=== PATIENT | female | born 1975 | race Caucasian/White ===

== ENCOUNTER 2016-10-19 20:37 | Emergency (ER) | payer SELFPAY ==
[~2016-10-19] VITALS: Ht 170.2 cm; Wt 106.6 kg
[~2016-10-19 20:37] MED LIST: FAMO-63 PO; PRED50TA PO
[2016-10-19 21:19] VITALS: BP 153/84
--- NOTE | 2016-10-19 21:20 | PHYS DOC ---
Past Medical History Past Medical History: Sciatica, Other Additional Past Medical Histor: Campos's Palsy, heartburn Past Surgical History: , Hysterectomy Alcohol Use: None Drug Use: None Adult General Chief Complaint Chief Complaint: ABDOMINAL PAIN HPI HPI Patient is a 41 year old female presenting to the emergency department for suprapubic and right lower quadrant pain that started earlier this morning. She says that she was quite sick to her stomach yesterday evening but had no pain however the pain has increased throughout the day. She has had nausea but no vomiting diarrhea constipation dysuria hematuria or vaginal bleeding or vaginal discharge. Her abdominal surgeries include a hysterectomy and right oophorectomy. She is in no obvious distress vital signs. Review of Systems Review of Systems Constitutional: Denies fever or chills [] Eyes: Denies change in visual acuity, redness, or eye pain [] HENT: Denies nasal congestion or sore throat [] Respiratory: Denies cough or shortness of breath [] Cardiovascular: No additional information not addressed in HPI [] GI: + abdominal pain, nausea. No vomiting, bloody stools or diarrhea [] : Denies dysuria or hematuria [] Musculoskeletal: Denies back pain or joint pain [] Integument: Denies rash or skin lesions [] Neurologic: Denies headache, focal weakness or sensory changes [] Current Medications Current Medications Current Medications Medications (Trade) Dose Ordered Sig/Boogie Start Time Stop Time Status Last Admin Dose Admin Fentanyl Citrate (Fentanyl 2ml Vial) 50 mcg 1X ONCE 10/19/16 22:45 10/19/16 22:46 UNV Info (Do NOT chart on this entry -- for MONITORING) 1 each PRN DAILY PRN 10/19/16 22:15 10/21/16 22:14 Iohexol (Omnipaque 300 Mg/ml) 75 ml 1X ONCE 10/19/16 22:30 10/19/16 22:31 DC 10/19/16 22:08 75 ML Ketorolac Tromethamine (Toradol) 30 mg 1X ONCE 10/19/16 23:00 10/19/16 23:01 Ondansetron HCl 8 mg 8 mg 1X ONCE 10/19/16 21:30 10/19/16 21:31 DC 10/19/16 21:20 8 MG Sodium Chloride (Iv Sodium Chloride 0.9% 1000ml Bag) 1,000 ml @ 1,000 mls/hr 1X ONCE 10/19/16 21:30 10/19/16 22:29 DC 10/19/16 21:21 1,000 MLS/HR Allergies Allergies Allergies Coded Allergies Type Severity Reaction Last Updated Verified latex Allergy Intermediate Anaphylaxis 05/25/16 Yes Physical Exam Physical Exam Constitutional: Well developed, well nourished, no acute distress, non-toxic appearance. [] HENT: Normocephalic, atraumatic, bilateral external ears normal, oropharynx moist, no oral exudates, nose normal. [] Eyes: PERRLA, EOMI, conjunctiva normal, no discharge. [] Neck: Normal range of motion, no tenderness, supple, no stridor. [] Cardiovascular:Heart rate regular rhythm, no murmur [] Lungs & Thorax: Bilateral breath sounds clear to auscultation [] Abdomen: Bowel sounds normal, soft, + suprapubic and RLQ tenderness, No rebound or guarding. no masses, no pulsatile masses. [] Skin: Warm, dry, no erythema, no rash. [] Back: No tenderness, no CVA tenderness. [] Extremities: No tenderness, no cyanosis, no clubbing, ROM intact, no edema. [] Neurologic: Alert and oriented X 3, normal motor function, normal sensory function, no focal deficits noted. [] Current Patient Data Vital Signs Vital Signs Date Time Temp Pulse Resp B/P Pulse Ox O2 Delivery O2 Flow Rate FiO2 10/19/16 21:21 18 10/19/16 21:19 92 153/84 97 Room Air 10/19/16 20:53 97.5 97.5 Lab Values Laboratory Tests Test 10/19/16 20:40 10/19/16 20:49 Urine Collection Type Unknown Urine Color Yellow Urine Clarity Clear Urine pH 5.5 Urine Specific [place] 1.025 Urine Protein Negativemg/dL (NEG-TRACE) Urine Glucose (UA) Negativemg/dL (NEG) Urine Ketones (Stick) Negativemg/dL (NEG) Urine Blood Negative (NEG) Urine Nitrite Negative (NEG) Urine Bilirubin Negative (NEG) Urine Urobilinogen Dipstick 1.0mg/dL (0.2 mg/dL) Urine Leukocyte Esterase Negative (NEG) Urine RBC 0/HPF (0-2) Urine WBC Occ/HPF (0-4) Urine Squamous Epithelial Cells Many/LPF Urine Bacteria Many/HPF (0-FEW) Urine Mucus Marked/LPF White Blood Count 10.6x10^3/uL (4.0-11.0) Red Blood Count 4.54x10^6/uL (3.50-5.40) Hemoglobin 12.6g/dL (12.0-15.5) Hematocrit 36.8% (36.0-47.0) Mean Corpuscular Volume 81fL (79-100) Mean Corpuscular Hemoglobin 28pg (25-35) Mean Corpuscular Hemoglobin Concent 34g/dL (31-37) Red Cell Distribution Width 13.8% (11.5-14.5) Platelet Count 303x10^3/uL (140-400) Neutrophils (%) (Auto) 63% (31-73) Lymphocytes (%) (Auto) 31% (24-48) Monocytes (%) (Auto) 4% (0-9) Eosinophils (%) (Auto) 2% (0-3) Basophils (%) (Auto) 0% (0-3) Neutrophils # (Auto) 6.7x10^3uL (1.8-7.7) Lymphocytes # (Auto) 3.3x10^3/uL (1.0-4.8) Monocytes # (Auto) 0.4x10^3/uL (0.0-1.1) Eosinophils # (Auto) 0.2x10^3/uL (0.0-0.7) Basophils # (Auto) 0.0x10^3/uL (0.0-0.2) Sodium Level 136mmol/L (136-145) Potassium Level 3.6mmol/L (3.5-5.1) Chloride Level 102mmol/L (98-107) Carbon Dioxide Level 28mmol/L (21-32) Anion Gap 6 (6-14) Blood Urea Nitrogen 12mg/dL (7-20) Creatinine 0.8mg/dL (0.6-1.0) Estimated GFR (Cockcroft-Gault) 79.9 BUN/Creatinine Ratio 15 (6-20) Glucose Level 123mg/dL (70-99) H Calcium Level 9.4mg/dL (8.5-10.1) Total Bilirubin 0.3mg/dL (0.2-1.0) Aspartate Amino Transferase (AST) 28U/L (15-37) Alanine Aminotransferase (ALT) 24U/L (14-59) Alkaline Phosphatase 81U/L (46-116) Total Protein 8.0g/dL (6.4-8.2) Albumin 3.4g/dL (3.4-5.0) Albumin/Globulin Ratio 0.7 (1.0-1.7) L Lipase 98U/L (73-393) Laboratory Tests 10/19/16 20:49 Laboratory Tests 10/19/16 20:49 EKG EKG [] Radiology/Procedures Radiology/Procedures PROCEDURE CT abdomen and pelvis with intravenous contrast only HISTORY Severe right lower quadrant pain today TECHNIQUE After administration of intravenous contrast, CT imaging was performed and pelvis, multiplanar reconstruction images submitted. Exposure: One or more of the following individualized dose reduction techniques were utilized for this exam: 1. Automated exposure control. 2. Adjustment of the mA and/or kV according to patient size. 3. Use of iterative reconstruction technique. Contrast: 75 cc Omnipaque 300 COMPARISON None FINDINGS There is no abnormality of limited visualized lung bases. There is no focal abnormality of the liver, spleen, pancreas, gallbladder, adrenal glands. Both kidneys enhance without hydronephrosis. Accurate evaluation of bowel is limited without oral contrast. There is no significant bowel dilatation, free air, free fluid. Appendix caliber is upper limits of normal 0.6 centimeters, no adjacent inflammatory type change. There is mild diverticulosis of the sigmoid colon. There are likely complex left adnexal cysts, largest on the order of 2 centimeters. IMPRESSION 1. Appendix caliber is upper limits of normal although no other findings suggestive of acute appendicitis. 2. There are likely some complex left adnexal cysts. Electronically signed by: Quoc Martinez MD (October 19, 2016 22:28:41) DICTATED and SIGNED BY: BERNA MARTINEZ MD DATE: 10/19/162227 Course & Med Decision Making Course & Med Decision Making Patient with nonspecific abdominal pain. We will check labs and CT treat symptoms and then reassess. Patient with nonspecific right lower quadrant abdominal pain that goes into her suprapubic area as well. Pain improved in the emergency department and her abdominal exam is largely unchanged however she does not have a surgical abdomen. CT is nonspecific and she could have an early appendicitis based off her symptoms. Patient is staying in the hospital with her currently as he is having some toes amputated tomorrow. She is hoping to go stay with him tonight. I told her that she could have a surgical problem in her abdomen and that she should return to the emergency department if she has worsening pain fevers or vomiting. I told her that I am here until 6 AM and that she is free to return at any time. Patient aware and agreeable with plan for discharge and verbalized understanding of the need for short-term follow-up and strict ER return precautions discussed worsening pain fevers vomiting or additional concerns. Dragon Disclaimer Dragon Disclaimer This electronic medical record was generated, in whole or in part, using a voice recognition dictation system. Departure Departure Impression: Primary Impression: Abdominal pain Disposition: HOME, SELF-CARE Condition: GOOD Referrals: BUCKY BLAKE (PCP) Patient Instructions: Abdominal Pain (Nonspecific) Problem Qualifiers Primary Impression: Abdominal pain Abdominal location: right lower quadrant Qualified Code: R10.31 - Right lower quadrant pain BUCKY DE JESUS DO October 19, 2016 21:20
[2016-10-19] MEDS ORDERED: IV NORMAL SALINE 1000ML BAG 1,000 ML IV ONE (21:30)
[2016-10-19] MEDS ORDERED: ONDANSETRON PF 4 MG/2 ML VIAL. IV ONE (21:30)
[2016-10-19] MEDS ORDERED: fentaNYL PF VIAL 100 MCG/2 ML VIAL IV ONE ×2 (21:30→23:00)
[2016-10-19 21:34] LABS: BASO % 0 % (0-3); EOS % 2 % (0-3); HEMATOCRIT 36.8 % (36.0-47.0); HEMOGLOBIN 12.6 g/dL (12.0-15.5); LYMPH # 3.3 x10^3/uL (1.0-4.8); LYMPH % 31 % (24-48); MEAN CORPUSCULAR HEMOGLOBIN 28 pg (25-35); MEAN CORPUSCULAR HGB CONC 34 g/dL (31-37); MEAN CORPUSCULAR VOLUME 81 fL (79-100); MONO % 4 % (0-9); NEUT % 63 % (31-73); PLATELET COUNT 303 x10^3/uL (140-400); RED BLOOD COUNT 4.54 x10^6/uL (3.50-5.40); RED CELL DISTRIBUTION WIDTH 13.8 % (11.5-14.5); WHITE BLOOD COUNT 10.6 x10^3/uL (4.0-11.0)
[2016-10-19 21:35] LABS: BILIRUBIN,URINE NEGATIVE (NEG); GLUCOSE,URINE NEGATIVE (NEG); NITRITE,URINE NEGATIVE (NEG); PH,URINE 5.5; PROTEIN,URINE NEGATIVE (NEG-TRACE)
[2016-10-19 21:41] LABS: BACTERIA,URINE MANY /HPF (0-FEW); RBC,URINE 0 /HPF (0-2); SQUAMOUS EPITHELIAL CELL,UR MANY /LPF; WBC,URINE OCC /HPF (0-4)
[2016-10-19 21:42] LABS: CALCIUM 9.4 mg/dL (8.5-10.1); CREATININE 0.8 mg/dL (0.6-1.0); GFR 79.9; POTASSIUM 3.6 mmol/L (3.5-5.1)
[2016-10-19 21:48] LABS: ALBUMIN 3.4 g/dL (3.4-5.0); ALBUMIN/GLOBULIN RATIO 0.7 (1.0-1.7); TOTAL BILIRUBIN 0.3 mg/dL (0.2-1.0)
[2016-10-19] MEDS ORDERED: CONTRAST GIVEN MC PRN (22:15)
--- NOTE | 2016-10-19 22:29 | RAD ---
PROCEDURE CT abdomen and pelvis with intravenous contrast only HISTORY Severe right lower quadrant pain today TECHNIQUE After administration of intravenous contrast, CT imaging was performed and pelvis, multiplanar reconstruction images submitted. Exposure: One or more of the following individualized dose reduction techniques were utilized for this exam: 1. Automated exposure control. 2. Adjustment of the mA and/or kV according to patient size. 3. Use of iterative reconstruction technique. Contrast: 75 cc Omnipaque 300 COMPARISON None FINDINGS There is no abnormality of limited visualized lung bases. There is no focal abnormality of the liver, spleen, pancreas, gallbladder, adrenal glands. Both kidneys enhance without hydronephrosis. Accurate evaluation of bowel is limited without oral contrast. There is no significant bowel dilatation, free air, free fluid. Appendix caliber is upper limits of normal 0.6 centimeters, no adjacent inflammatory type change. There is mild diverticulosis of the sigmoid colon. There are likely complex left adnexal cysts, largest on the order of 2 centimeters. IMPRESSION 1. Appendix caliber is upper limits of normal although no other findings suggestive of acute appendicitis. 2. There are likely some complex left adnexal cysts. Electronically signed by: Quoc Shirley MD (October 19, 2016 22:28:41)
[2016-10-19] MEDS ORDERED: IOHEXOL 300 MG/ML 75 ML VIAL IV ONE (22:30)
[2016-10-19] MEDS ORDERED: KETOROLAC TROMETHAMINE 30 MG/ML INJ. IV ONE (23:00)
== END 2016-10-19 22:54 | disposition home or self-care (01) ==
LOC: ER 20:37
DX: R10.31 Right lower quadrant pain (principal); R11.0 Nausea; Z90.710 Acquired absence of both cervix and uterus; Z90.721 Acquired absence of ovaries, unilateral; Z91.040 Latex allergy status
CPT/HCPCS: 36415; 74177; 80053; 81001; 83690; 85027; 87086; 96361; 96374; 96375; 96376; 99285; J1885; J2405; J3010; J7030; Q9967

== ENCOUNTER 2016-10-20 15:03 | Observation (INO) | payer BC ==
[2016-10-20] VITALS (9 sets, daily range): BP systolic 107–133; BP diastolic 57–81
[~2016-10-20] VITALS: Ht 170.2 cm; Wt 106.6 kg
[~2016-10-20 15:03] MED LIST changes: -OXYC1TAB7 PO
[2016-10-20] MEDS ORDERED: IV NORMAL SALINE 1000ML BAG 1,000 ML IV SCH (15:17)
[2016-10-20] MEDS ORDERED: fentaNYL PF VIAL 100 MCG/2 ML VIAL IV PRN ×2 (15:30→16:15)
[2016-10-20] MEDS ORDERED: ONDANSETRON PF 4 MG/2 ML VIAL. IV ONE (15:30)
[2016-10-20] MEDS ORDERED: fentaNYL PF VIAL 100 MCG/2 ML VIAL IV ONE (15:30)
[2016-10-20 15:38] LABS: BASO # 0.1 x10^3/uL (0.0-0.2); BASO % 1 % (0-3); EOS % 1 % (0-3); HEMATOCRIT 36.3 % (36.0-47.0); LYMPH # 2.5 x10^3/uL (1.0-4.8); LYMPH % 25 % (24-48); MEAN CORPUSCULAR HEMOGLOBIN 27 pg (25-35); MEAN CORPUSCULAR HGB CONC 33 g/dL (31-37); MEAN CORPUSCULAR VOLUME 83 fL (79-100); MONO % 4 % (0-9); NEUT % 70 % (31-73); PLATELET COUNT 260 x10^3/uL (140-400); RED BLOOD COUNT 4.38 x10^6/uL (3.50-5.40); RED CELL DISTRIBUTION WIDTH 13.7 % (11.5-14.5); WHITE BLOOD COUNT 10.3 x10^3/uL (4.0-11.0)
--- NOTE | 2016-10-20 15:44 | PHYS DOC ---
Past Medical History Past Medical History: Sciatica, Other Additional Past Medical Histor: Campos's Palsy, heartburn Past Surgical History: , Hysterectomy Alcohol Use: None Drug Use: None Adult General Chief Complaint Chief Complaint: ABDOMINAL PAIN HPI HPI Patient is a 41 year old female who returns to the emergency Department with worsened right lower quadrant abdominal pain. Patient was seen last evening in the ED with some nausea and right lower quadrant abdominal pain which had localized. She was evaluated and thought to have possible early appendicitis that she was discharged with careful return precautions. Patient says that during the day today her pain has gotten progressively worse. She has vomited twice. She is anorexic and has not had a single thing to eat or drink all day today because of nausea. It hurts when she walks. Her pain now is in her low right lower quadrant and wraps around to her back. She's never had pain like this before. She has no history of GI disturbance like Crohn's or ulcerative colitis. She has had a history of "reflux" and was put on a prescription acid medication which did help. She has never had endoscopy. She has had a history and right oophorectomy. She still has her left ovary. She's had no GI surgery. Her is scheduled to have surgery today to have some toe amputations so she was putting off returning but her pain is increasingly severe. Review of Systems Review of Systems Constitutional: Denies fever or chills [] Eyes: Denies change in visual acuity, redness, or eye pain [] HENT: Denies nasal congestion or sore throat [] Respiratory: Denies cough or shortness of breath [] Cardiovascular: Denies chest pain GI: As in history of present illness : Denies dysuria or hematuria or frequency Musculoskeletal: Denies back pain or joint pain [] Integument: Denies rash or skin lesions [] Neurologic: Denies headache, focal weakness or sensory changes [] Current Medications Current Medications Current Medications Medications (Trade) Dose Ordered Sig/Boogie Start Time Stop Time Status Last Admin Dose Admin Bupivacaine HCl/ Epinephrine Bitart 30 ml 30 ml STK-MED ONCE 10/20/16 15:51 10/20/16 15:52 DC Cefoxitin Sodium (Mefoxin 2gm Ivpb For Omni) 100 ml @ As Directed STK-MED ONCE 10/20/16 16:08 10/20/16 16:09 DC Cellulose 1 each STK-MED ONCE 10/20/16 15:50 10/20/16 15:51 DC Fentanyl Citrate (Fentanyl 2ml Vial) 50 mcg PRN Q5MIN PRN 10/20/16 16:15 10/21/16 16:14 Fentanyl Citrate 50 mcg 50 mcg PRN Q15MIN PRN 10/20/16 15:30 10/21/16 15:29 Hydromorphone HCl (Dilaudid) 0.5 mg PRN Q10MIN PRN 10/20/16 16:15 10/21/16 16:14 Info (Do NOT chart on this entry -- for MONITORING) 1 each PRN DAILY PRN 10/20/16 15:45 10/22/16 15:44 Iohexol (Omnipaque 300 Mg/ml) 75 ml 1X ONCE 10/20/16 15:45 10/20/16 16:05 DC Lidocaine HCl 2 ml PRN 1X PRN 10/20/16 16:15 10/21/16 16:14 Lidocaine HCl (Lidocaine HCl 2% Abboject) 100 mg STK-MED ONCE 10/20/16 15:58 10/20/16 15:59 DC Morphine Sulfate 1 mg PRN Q10MIN PRN 10/20/16 16:15 10/21/16 16:14 Ondansetron HCl (Zofran) 4 mg PRN Q6HRS PRN 10/20/16 16:15 10/21/16 16:14 Prochlorperazine Edisylate 5 mg 5 mg PACU PRN PRN 10/20/16 16:15 10/21/16 16:14 Propofol (Diprivan) 20 ml @ As Directed STK-MED ONCE 10/20/16 15:58 10/20/16 15:59 DC Rocuronium [place] (Zemuron) 100 mg STK-MED ONCE 10/20/16 15:58 10/20/16 15:59 DC Sodium Chloride (Iv Sodium Chloride 0.9% 1000ml Bag) 1,000 ml @ 1,000 mls/hr Q1H 10/20/16 15:17 10/20/16 16:16 10/20/16 15:33 1,000 MLS/HR Succinylcholine Chloride (Anectine) 200 mg STK-MED ONCE 10/20/16 15:58 10/20/16 15:59 DC Allergies Allergies Allergies Coded Allergies Type Severity Reaction Last Updated Verified latex Allergy Intermediate Anaphylaxis 05/25/16 Yes Physical Exam Physical Exam Constitutional: Well developed, well nourished, appears uncomfortable, slightly tearful. HENT: Normocephalic, atraumatic, bilateral external ears normal, nose normal. [ ] Eyes: conjunctiva normal, no discharge. [] Neck: Normal range of motion, no stridor. [] Cardiovascular:Heart rate regular rhythm, no murmur [] Lungs & Thorax: Bilateral breath sounds clear to auscultation [] Abdomen: Bowel sounds quiet, soft, nondistended, no masses, no pulsatile masses. Positive right lower quadrant tenderness. The maximum point of tenderness is below McBurney's point. She is tender at McBurney's point but more tender lower in the right lower quadrant. No rebound or guarding. Skin: Warm, dry, no erythema, no rash. [] Extremities: No tenderness, no cyanosis, no clubbing, ROM intact, no edema. [] Neurologic: Alert and oriented X 3, normal motor function, normal sensory function, no focal deficits noted. [] Current Patient Data Vital Signs Vital Signs Date Time Temp Pulse Resp B/P Pulse Ox O2 Delivery O2 Flow Rate FiO2 10/20/16 15:59 96 18 163/86 98 Room Air 10/20/16 15:26 97.5 97.5 Lab Values Laboratory Tests Test 10/20/16 15:20 White Blood Count 10.3x10^3/uL (4.0-11.0) Red Blood Count 4.38x10^6/uL (3.50-5.40) Hemoglobin 12.0g/dL (12.0-15.5) Hematocrit 36.3% (36.0-47.0) Mean Corpuscular Volume 83fL (79-100) Mean Corpuscular Hemoglobin 27pg (25-35) Mean Corpuscular Hemoglobin Concent 33g/dL (31-37) Red Cell Distribution Width 13.7% (11.5-14.5) Platelet Count 260x10^3/uL (140-400) Neutrophils (%) (Auto) 70% (31-73) Lymphocytes (%) (Auto) 25% (24-48) Monocytes (%) (Auto) 4% (0-9) Eosinophils (%) (Auto) 1% (0-3) Basophils (%) (Auto) 1% (0-3) Neutrophils # (Auto) 7.2x10^3uL (1.8-7.7) Lymphocytes # (Auto) 2.5x10^3/uL (1.0-4.8) Monocytes # (Auto) 0.4x10^3/uL (0.0-1.1) Eosinophils # (Auto) 0.1x10^3/uL (0.0-0.7) Basophils # (Auto) 0.1x10^3/uL (0.0-0.2) Sodium Level 139mmol/L (136-145) Potassium Level 3.7mmol/L (3.5-5.1) Chloride Level 102mmol/L (98-107) Carbon Dioxide Level 27mmol/L (21-32) Anion Gap 10 (6-14) Blood Urea Nitrogen 12mg/dL (7-20) Creatinine 0.8mg/dL (0.6-1.0) Estimated GFR (Cockcroft-Gault) 79.9 BUN/Creatinine Ratio 15 (6-20) Glucose Level 90mg/dL (70-99) Calcium Level 9.0mg/dL (8.5-10.1) Total Bilirubin 0.4mg/dL (0.2-1.0) Aspartate Amino Transferase (AST) 26U/L (15-37) Alanine Aminotransferase (ALT) 24U/L (14-59) Alkaline Phosphatase 66U/L (46-116) Total Protein 7.8g/dL (6.4-8.2) Albumin 3.4g/dL (3.4-5.0) Albumin/Globulin Ratio 0.8 (1.0-1.7) L Lipase 74U/L (73-393) Laboratory Tests 10/20/16 15:20 Laboratory Tests 10/20/16 15:20 EKG EKG [] Radiology/Procedures Radiology/Procedures [] Course & Med Decision Making Course & Med Decision Making Pertinent Labs and Imaging studies reviewed. (See chart for details) 41-year-old female who was seen in the ED last night and diagnosed with possible early appendicitis returns today with worsening pain, her nausea has progressed and is worse with a couple episodes of vomiting. I reviewed her chart from yesterday. CT was read yesterday as appendix being upper limits of normal in size but otherwise unremarkable. I discussed the case with the radiologist on duty today. He reviewed that CT scan. He agreed that certainly there was no evidence of acute appendicitis yesterday and in fact appendix size was equivocal in his opinion. He also said that the appendix is in a "normal" location, not unusually low or pointing down into the pelvis. We discussed imaging options today and he felt that if we need to image, the best choice would be to repeat the CT scan with contrast but image only the pelvis. I discussed the case with , general surgery. She will come to the ED to see the patient now. Dr. Valentin saw the patient in the ED, she reviewed the patient's CT scan from yesterday, and she recommended to the patient that she will take her to the operating room this afternoon. The patient is agreeable to that. I wrote bridge orders. [] Dragon Disclaimer Dragon Disclaimer This electronic medical record was generated, in whole or in part, using a voice recognition dictation system. Departure Departure Impression: Primary Impression: Acute appendicitis Disposition: ADMITTED INPATIENT Admitting Physician: Other Condition: STABLE Referrals: BUCKY BLAKE (PCP) LACIE RUTHERFORD MD October 20, 2016 15:44
[2016-10-20] MEDS ORDERED: CONTRAST GIVEN MC PRN (15:45)
[2016-10-20] MEDS ORDERED: IOHEXOL 300 MG/ML 75 ML VIAL IV ONE (15:45)
[2016-10-20 15:49] LABS: CREATININE 0.8 mg/dL (0.6-1.0); GFR 79.9; POTASSIUM 3.7 mmol/L (3.5-5.1)
[2016-10-20] MEDS ORDERED: SURGICEL HEMOSTAT 4X8 EACH. ONE (15:50)
[2016-10-20] MEDS ORDERED: BUPIVAC MPF-EPI 0.5%-1:200000 30 ML VIAL. ONE (15:51)
[2016-10-20 15:54] LABS: ALBUMIN 3.4 g/dL (3.4-5.0); ALBUMIN/GLOBULIN RATIO 0.8 (1.0-1.7); TOTAL BILIRUBIN 0.4 mg/dL (0.2-1.0); TOTAL PROTEIN 7.8 g/dL (6.4-8.2)
[2016-10-20] MEDS ORDERED: SUCCINYLCHOLINE 200 MG/10 ML VIAL. ONE (15:58)
[2016-10-20] MEDS ORDERED: LIDOCAINE 2% 100 MG/5 ML SYRINGE. ONE (15:58)
[2016-10-20] MEDS ORDERED: fentaNYL PF VIAL 100 MCG/2 ML VIAL ONE (15:58)
[2016-10-20] MEDS ORDERED: PROPOFOL 20 ML IV ONE (15:58)
[2016-10-20] MEDS ORDERED: ROCURONIUM 100 MG/10 ML VIAL. ONE (15:58)
[2016-10-20] MEDS ORDERED: IV RINGERS,LACTATED 1000ML 1,000 ML IV SCH (16:05)
[2016-10-20] MEDS ORDERED: ONDANSETRON PF 4 MG/2 ML VIAL. IV PRN ×2 (16:15→17:45)
[2016-10-20] MEDS ORDERED: MORPHINE SULFATE 2 MG/ML DISP.SYRIN. IV PRN (16:15)
[2016-10-20] MEDS ORDERED: HYDROmorphone 2 MG/ML VIAL IV PRN ×2 (16:15→17:45)
[2016-10-20] MEDS ORDERED: LIDOCAINE 1% 1 ML SYRINGE. ID PRN (16:15)
[2016-10-20] MEDS ORDERED: PROCHLORPERAZINE 10 MG/2 ML VIAL. IV PRN (16:15)
--- NOTE | 2016-10-20 16:21 | PDOC ---
Provider Note Provider Note H and P dictated #[id number] WILLIE PALAFOX MD October 20, 2016 16:21
[2016-10-20] MEDS ORDERED: GLYCOPYRROLATE 1 MG/5 ML VIAL. ONE (16:37)
[2016-10-20] MEDS ORDERED: ONDANSETRON PF 4 MG/2 ML VIAL. ONE (16:37)
[2016-10-20] MEDS ORDERED: NEOSTIGMINE METHYLSULFATE 5 MG/5 ML SYRINGE. ONE (16:37)
[2016-10-20] MEDS ORDERED: ePHEDrine PF IN SALINE 50 MG/5 ML DISP.SYRIN IV ONE (16:40)
[2016-10-20] MEDS ORDERED: KETOROLAC 60 MG/2 ML INJ FOR OR. ONE (17:20)
[2016-10-20] MEDS: IV NORMAL SALINE 1000ML BAG 1,000 ML IV SCH (17:39)
[2016-10-20] MEDS ORDERED: OXYCODONE/APAP 5/325 TABLET. PO PRN (17:45)
[2016-10-20] MEDS ORDERED: 0.9 % SODIUM CHLORIDE 10 ML DISP.SYRIN. IV PRN (17:45)
[2016-10-20] MEDS ORDERED: METOCLOPRAMIDE HCL 10 MG/2 ML VIAL. IV PRN (17:45)
[2016-10-20] MEDS: fentaNYL PF VIAL 100 MCG/2 ML VIAL IV PRN ×4 (17:45→18:20)
--- NOTE | 2016-10-20 17:49 | PDOC ---
BRIEF OPERATIVE NOTE Pre-Op Diagnosis appendicitis Post-Op Diagnosis appendicolith w/RLQ pain pelvic nodules Procedure Performed lap appy; bx of pelvic nodules Surgeon viola palafox Anesthesia Type: General Blood Loss 75 IV Fluid 1000 Specimens Obtained pelvic nodules; appendix Complications 0 Additional Remarks #[id number] WILLIE PALAOFX MD October 20, 2016 17:49
[2016-10-20] MEDS ORDERED: ENOXAPARIN 40 MG/0.4 ML SYRINGE. SQ SCH (18:00)
[2016-10-20] MEDS: KETOROLAC TROMETHAMINE 30 MG/ML INJ. IV PRN (19:08)
--- NOTE | 2016-10-20 19:39 | PREOP HP ---
DATE OF SERVICE: 10/20/2016 CHIEF COMPLAINT: Abdominal pain. HISTORY OF PRESENT ILLNESS: The patient is a 41-year-old female who presented to the ER yesterday with right lower quadrant pain. She says that she at first developed diffuse abdominal pain yesterday and then it localized to her right lower quadrant and became sharp. She was seen in the ER where CT scan was equivocal for appendicitis. She was discharged to home with instructions to return if she worsens and she did worsen and therefore she returns today. She complains of increasingly severe right lower quadrant pain. It is sharp. It is constant. It is worse with movement and it is difficult for her to walk, standing straight up because of the pain. This is associated with nausea and vomiting. She has not had pain like this before. PAST MEDICAL HISTORY: Gastroesophageal reflux disease. PAST SURGICAL HISTORY: Hysterectomy with right oophorectomy. SOCIAL HISTORY: She is . She is a nonsmoker, nondrinker. 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 FAMILY HISTORY: Noncontributory to this illness. ALLERGIES: LATEX. MEDICATIONS: Medications for acid reflux. REVIEW OF SYSTEMS: CONSTITUTIONAL: No fevers or chills. EYES: No abrupt loss of vision or double vision. EARS, NOSE, MOUTH, AND THROAT: No loss of hearing or ringing in her ears. CARDIOVASCULAR: No chest pain or heart palpitations. RESPIRATORY: No cough or shortness of breath. GASTROINTESTINAL: See HPI. GENITOURINARY: No dysuria or hematuria. HEMATOLOGIC: No easy bleeding or bruising. MUSCULOSKELETAL: No new myalgias or arthralgias. She does have some carpal tunnel in her right hand. DERMATOLOGIC: No new skin rashes or lesions. NEUROLOGIC: No headaches or seizures. PSYCHIATRIC: No depression or anxiety. ENDOCRINE: No polyuria or polydipsia. PHYSICAL EXAMINATION: VITAL SIGNS: She is afebrile with a heart rate of 96, respiratory rate 18, blood pressure 163/86, O2 sats 98% on room air. GENERAL: This is a well-developed, obese female, who does not appear to feel well. PSYCHIATRIC: She is cooperative with appropriate mood and affect. NEUROLOGIC: She has no resting tremor. She can move all 4 extremities without difficulty. She is alert and oriented x 3. EYES: Pupils are round and reactive. Sclerae are nonicteric. HENT: Head is atraumatic. Mucous membranes moist. Face symmetric. NECK: Supple without cervical lymphadenopathy. No supraclavicular lymphadenopathy. No neck masses or tenderness. CARDIOVASCULAR: 2+ right radial pulse. No pedal edema. RESPIRATORY: Respirations are nonlabored. CHEST WALL: Nontender to palpation. She is on room air. ABDOMEN: Soft, nondistended. She is focally tender in the right lower quadrant inferior to McBurney's point. No Rovsing sign. She has localized rebound in the right lower quadrant. DERMATOLOGIC: Exposed portions of her skin are unremarkable. LABORATORY DATA: Reviewed. IMAGING: CT scan was reviewed. ASSESSMENT: 1. Acute appendicitis. 2. Obesity with a BMI of 36.8. 3. Gastroesophageal reflux disease. PLAN: Based on the CT scan, I suspect that she has appendicitis at the tip of her appendix. The tip of her appendix is lying low in her pelvis and that would explain why her maximal point of tenderness is inferior to her McBurney's point. We discussed repeat CT scan with inherent risk of radiation and still an unequivocal diagnosis versus proceeding to the operating room. She is agreeable to proceeding to the operating room and I think this is reasonable given her history as well as her exam and her CT findings. Risk of surgery including bleeding, infection, need to convert to open, injury to intra-abdominal structures, finding a normal appendix and/or other structures requiring operative repair as well as remote risk of heart attack, stroke, DVT, PE, pneumonia, and were all discussed with the patient. Questions were answered and desired to proceed with the procedure. WILLIE PALAFOX MD DR: RUFINA/lennox JOB#: [id number] / [id number]
[2016-10-20] MEDS: SENNOSIDES/DOCUSATE 8.6/50MG TABLET. PO SCH (21:00)
[2016-10-20] MEDS: FAMOTIDINE 20 MG TABLET. PO SCH (21:00)
--- NOTE | 2016-10-20 23:26 | OP ---
DATE OF SURGERY: 10/20/2016 PREOPERATIVE DIAGNOSIS: Acute appendicitis. POSTOPERATIVE DIAGNOSES: 1. Panniculus with right lower quadrant pain. 2. Pelvic nodules, presumably endometriosis. PROCEDURE: 1. Laparoscopic appendectomy. 2. Biopsy of pelvis nodules. SURGEON: Willie Palafox M.D. ANESTHESIA: General. ESTIMATED BLOOD LOSS: 75 mL. INTRAVENOUS FLUIDS: 1000 mL. INDICATIONS: The patient is a 41-year-old female with a 2-day history of right lower quadrant pain that is severe. See my H and P for details. FINDINGS: She had a normal-appearing appendix, but after it was removed and palpated, there were mobile nodules within the appendix consistent with the panniculus. She also had numerous bluish-colored nodules throughout her pelvis consistent with endometriosis. Two of these were biopsied. DESCRIPTION OF PROCEDURE: After informed consent was obtained, the patient was taken to the operating room and placed in the supine position. After adequate induction of general anesthesia, she was prepped and draped in the usual sterile fashion. An umbilical skin incision was made with a scalpel, subcutaneous tissues were spread with a hemostate and an oschner was used to grab the fascia and lift it anteriorly. Veress was used to gain access to the peritoneal cavity. Low-opening pressures confirmed intraperitoneal placement of Veress. Pneumoperitoneum to 15 mmHg was established followed by placement of a 5-mm port. A 5-mm 30-degree lens was inserted, which revealed good port placement. No evidence of entry trauma. She was placed head down and rotated towards her left. Three additional ports were placed under direct vision. The sites were injected with local anesthetic. Skin incisions were made and a suprapubic 5-mm and a left lower quadrant 12-mm port were placed. The appendix was visible. It appeared normal. She had some adhesions of omentum to the right lower quadrant and the anterior abdominal wall. These were taken down sharply. These did not involve the bowel. The gallbladder and the liver were inspected and appeared normal. Small bowel was run several feet proximal from the ileocecal valve and was unremarkable. The sigmoid and rectum were unremarkable. She had pelvic nodules along the peritoneum. They were bluish in color consistent with endometriosis. She had a cyst on her left ovary. The ovary was without evidence of torsion. Two of the pelvic nodules were excised sharply. There was some bleeding from the raw peritoneal surface that was controlled with the application of a clip loftsman/woman. The biopsied nodules were sent to pathology for examination. Appendectomy was performed. A window was made at the base of the appendix with a [place] dissector. Laparoscopic LACY blue-load stapler was used to divide the base of the appendix. Laparoscopic LACY white-load stapler was used to divide the mesoappendix. The appendix was placed in the laparoscopic bag and brought out through the left lower quadrant incision. It was palpated through the laparoscopic bag and there were at least 2 nodules within the appendix that were mobile consistent with the panniculus. Right lower quadrant was inspected. There was a little bit of bleeding from the mesoappendiceal staple line that was controlled with a clip loftsman/woman. Right lower quadrant was irrigated and the pelvis was irrigated. The irrigant returned clear. No bleeding noted. Staple lines were intact and appeared healthy. Fascial closure device was used to close the fascia at the left lower quadrant incision with an 0 Vicryl suture. The ports were removed under direct vision. They were hemostatic. Pneumoperitoneum was desufflated. Skin incisions were closed with 4-0 Monocryl in a subcuticular fashion. Sterile dressings were placed. She tolerated the procedure well. There were no apparent complications. She was then transferred in stable condition to the recovery room. WILLIE PALAFOX MD DR: RUFINA/lennox JOB#: [id number] / [id number] LACIE Lange MD, DAVID MTDD
[2016-10-21] MEDS ORDERED: ACETAMINOPHEN 325 MG TABLET. PO PRN
[2016-10-21] MEDS: IV NORMAL SALINE 1000ML BAG 1,000 ML IV SCH ×2 (00:31→12:25)
[2016-10-21 02:49] VITALS: BP 123/62
[2016-10-21 07:00] VITALS: BP 105/64
--- NOTE | 2016-10-21 08:44 | PDOC ---
JEFF SHI INFORMATION CLERK BROKERAGE 10/21/16 0844: SURGICAL PROGRESS NOTE Subjective has not eaten yet, nausea this AM with breakfast in room more sore to LLQ today urinating well Vital Signs Vital Signs Date Time Temp Pulse Resp B/P (MAP) Pulse Ox O2 Delivery O2 Flow Rate FiO2 10/21/16 02:49 98.8 78 18 123/62 (82) 95 Room Air 98.8 10/20/16 21:15 2.0 I&O Intake and Output 10/21/16 07:00 Intake Total 1400 ml Output Total 125 ml Balance 1275 ml Intake IV Total 1400 ml Output Urine Total 50 ml Estimated Blood Loss 75 ml # Voids 3 General: Alert, Oriented X3, Cooperative, No acute distress Abdomen: Soft, Other (ND, lap dressings dry, incisional TTP) Labs Laboratory Tests Test 10/20/16 15:20 White Blood Count 10.3 x10^3/uL (4.0-11.0) Red Blood Count 4.38 x10^6/uL (3.50-5.40) Hemoglobin 12.0 g/dL (12.0-15.5) Hematocrit 36.3 % (36.0-47.0) Mean Corpuscular Volume 83 fL (79-100) Mean Corpuscular Hemoglobin 27 pg (25-35) Mean Corpuscular Hemoglobin Concent 33 g/dL (31-37) Red Cell Distribution Width 13.7 % (11.5-14.5) Platelet Count 260 x10^3/uL (140-400) Neutrophils (%) (Auto) 70 % (31-73) Lymphocytes (%) (Auto) 25 % (24-48) Monocytes (%) (Auto) 4 % (0-9) Eosinophils (%) (Auto) 1 % (0-3) Basophils (%) (Auto) 1 % (0-3) Neutrophils # (Auto) 7.2 x10^3uL (1.8-7.7) Lymphocytes # (Auto) 2.5 x10^3/uL (1.0-4.8) Monocytes # (Auto) 0.4 x10^3/uL (0.0-1.1) Eosinophils # (Auto) 0.1 x10^3/uL (0.0-0.7) Basophils # (Auto) 0.1 x10^3/uL (0.0-0.2) Sodium Level 139 mmol/L (136-145) Potassium Level 3.7 mmol/L (3.5-5.1) Chloride Level 102 mmol/L (98-107) Carbon Dioxide Level 27 mmol/L (21-32) Anion Gap 10 (6-14) Blood Urea Nitrogen 12 mg/dL (7-20) Creatinine 0.8 mg/dL (0.6-1.0) Estimated GFR (Cockcroft-Gault) 79.9 BUN/Creatinine Ratio 15 (6-20) Glucose Level 90 mg/dL (70-99) Calcium Level 9.0 mg/dL (8.5-10.1) Total Bilirubin 0.4 mg/dL (0.2-1.0) Aspartate Amino Transf (AST/SGOT) 26 U/L (15-37) Alanine Aminotransferase (ALT/SGPT) 24 U/L (14-59) Alkaline Phosphatase 66 U/L (46-116) Total Protein 7.8 g/dL (6.4-8.2) Albumin 3.4 g/dL (3.4-5.0) Albumin/Globulin Ratio 0.8 (1.0-1.7) Lipase 74 U/L (73-393) Laboratory Tests Test 10/20/16 15:20 White Blood Count 10.3 x10^3/uL (4.0-11.0) Red Blood Count 4.38 x10^6/uL (3.50-5.40) Hemoglobin 12.0 g/dL (12.0-15.5) Hematocrit 36.3 % (36.0-47.0) Mean Corpuscular Volume 83 fL (79-100) Mean Corpuscular Hemoglobin 27 pg (25-35) Mean Corpuscular Hemoglobin Concent 33 g/dL (31-37) Red Cell Distribution Width 13.7 % (11.5-14.5) Platelet Count 260 x10^3/uL (140-400) Neutrophils (%) (Auto) 70 % (31-73) Lymphocytes (%) (Auto) 25 % (24-48) Monocytes (%) (Auto) 4 % (0-9) Eosinophils (%) (Auto) 1 % (0-3) Basophils (%) (Auto) 1 % (0-3) Neutrophils # (Auto) 7.2 x10^3uL (1.8-7.7) Lymphocytes # (Auto) 2.5 x10^3/uL (1.0-4.8) Monocytes # (Auto) 0.4 x10^3/uL (0.0-1.1) Eosinophils # (Auto) 0.1 x10^3/uL (0.0-0.7) Basophils # (Auto) 0.1 x10^3/uL (0.0-0.2) Sodium Level 139 mmol/L (136-145) Potassium Level 3.7 mmol/L (3.5-5.1) Chloride Level 102 mmol/L (98-107) Carbon Dioxide Level 27 mmol/L (21-32) Anion Gap 10 (6-14) Blood Urea Nitrogen 12 mg/dL (7-20) Creatinine 0.8 mg/dL (0.6-1.0) Estimated GFR (Cockcroft-Gault) 79.9 BUN/Creatinine Ratio 15 (6-20) Glucose Level 90 mg/dL (70-99) Calcium Level 9.0 mg/dL (8.5-10.1) Total Bilirubin 0.4 mg/dL (0.2-1.0) Aspartate Amino Transf (AST/SGOT) 26 U/L (15-37) Alanine Aminotransferase (ALT/SGPT) 24 U/L (14-59) Alkaline Phosphatase 66 U/L (46-116) Total Protein 7.8 g/dL (6.4-8.2) Albumin 3.4 g/dL (3.4-5.0) Albumin/Globulin Ratio 0.8 (1.0-1.7) Lipase 74 U/L (73-393) Problem List Problems Medical Problems: (1) Acute appendicitis Status: Acute Assessment/Plan s/p lap appy, biopsy pelvic nodules will make sure can tolerate PO prior to DC ambulate Problems: WILLIE PALAFOX MD 10/21/16 6096: SURGICAL PROGRESS NOTE Assessment/Plan addendum i saw and examined her. her RLQ pain has resolved. she feels well and is hoping to dc today abd soft nd approp tender bandages dry a/p dc home later today. Problems: JEFF SHI INFORMATION CLERK [employer] October 21, 2016 08:44 WILLIE PALAFOX MD October 21, 2016 12:46
[2016-10-21] MEDS ORDERED: OXYC1TAB7 PO (08:45)
[2016-10-21] MEDS ORDERED: ENOXAPARIN 40 MG/0.4 ML SYRINGE. SQ SCH (09:00)
[2016-10-21] MEDS: FAMOTIDINE 20 MG TABLET. PO SCH (09:22)
[2016-10-21] MEDS: KETOROLAC TROMETHAMINE 30 MG/ML INJ. IV PRN (09:22)
[2016-10-21] MEDS: SENNOSIDES/DOCUSATE 8.6/50MG TABLET. PO SCH (09:22)
[2016-10-21 11:00] VITALS: BP 115/64
[2016-10-21 15:00] VITALS: BP 99/61
--- NOTE | 2016-10-22 11:36 | PDOC3 ---
Discharge Summary* Date of Admission: October 20, 2016 Date of Discharge: October 21, 2016 Admitting Diagnosis Problems Medical Problems: (1) Acute appendicitis Status: Acute Final Diagnosis Problems Medical Problems: (1) Acute appendicitis Status: Acute CONSULTS NONE Procedures Laparoscopic appendectomy Brief Hospital Course Ms. Garcia is a 41 old female who presented with abdominal pain and appendicitis. She underwent appendectomy, postoperatively tolerating diet, ambulating, urinating, and pain managed with oral medications. Ready for discharge home Disposition/Orders: D/C to Home Diet: Regular Scheduled Famotidine (Pepcid), 20 MG PO BID Prednisone (Prednisone), 1 TAB PO DAILY FOLLOW UP APPOINTMENT: 2 weeks Time Spent Total time spent with patient [] minutes for coordination of care, counseling, and education. JEFF SHI APRN October 22, 2016 11:36
--- NOTE | 2016-10-25 07:53 | PATHOLOGY ---
PATHOLOGY REPORT * * * * * * * * FINAL DIAGNOSIS: A. Segments of fibroadipose tissue, pelvic mass: - Necrotizing and foreign body granulomatous inflammation. B. Appendix, laparoscopic appendectomy: - No significant pathologic abnormalities. COMMENT: Sections of the pelvic mass reveal focal foreign body giant cell reaction and necrotizing granulomatous inflammation containing necrotic material. There is no evidence of malignancy. Sections of the appendix reveal an intact appendiceal mucosa. There is no acute inflammatory cell infiltrate within the fibromuscular wall. REPORT ELECTRONICALLY SIGNED BY: Pilo Angelo M.D. DATE/TIME: 10/25/2016 07:53 * * * * * * * * GROSS PATHOLOGY: A. Received in formalin labeled "pelvic mass" are three segments of brown fibroadipose tissue measuring up to 0.7 cm in greatest dimension which appear to be appendix epiploicae. They are submitted entirely in cassette A1. B. Received in formalin labeled "appendix" is a vermiform appendix measuring 7.0 x 1.0 x 1.0 cm with attached mesenteric fibroadipose tissue up to 1 mm. The appendix does not appear grossly perforated or purulent. It is somewhat dilated proximally. Beam Warper sections are submitted in cassettes B1. (SWK:csd; d/t: 10/21-10/2016) INITIAL CPT CODE(S): A; 55090 B; 08615 Professional services performed by [employer] [place] [address] Technical services performed by [employer] at [address] [place] [address] [address], [place] [address]. SPECIMEN(S) RECEIVED: A.Pelvic mass B.Appendix CLINICAL HISTORY: Acute appendicitis PATIENT: SAQIBTRI FRANCO Edson /AGE: 1 1975 (Age: 41) PATIENT #: [id number] ALT CASE #: SPECIMEN COLLECTION DATE: 10/20/2016 SPECIMEN RECEIVED DATE: 10/21/2016 [facility] - [address] [place] [address] - PHONE: [phone] * * * END OF REPORT * * *
== END 2016-10-21 18:30 | disposition home or self-care (01) ==
LOC: ER 15:03 → INTOOBSV 15:47 → 4 NORTH 15:47 → ER 16:06 → 4 NORTH 18:45
PROVIDERS: ADMIT Surgery; ATTEND Surgery
DX: K35.80 Unspecified acute appendicitis (principal); E65 Localized adiposity; K21.9 Gastro-esophageal reflux disease without esophagitis; E66.9 Obesity, unspecified; K66.0 Peritoneal adhesions (postprocedural) (postinfection); N80.9 Endometriosis, unspecified; Z68.36 Body mass index [BMI] 36.0-36.9, adult; Z90.710 Acquired absence of both cervix and uterus; Z90.721 Acquired absence of ovaries, unilateral
CPT/HCPCS: 36415; 44970; 80053; 83690; 85027; 96372; 96374; 96375; 96376; 99285; C1782; G0378; J0330; J0694; J1170; J1650; J1885; J2405; J2704; J2710; J3010; J3490; J7030; J7120; 88304; G0379

== ENCOUNTER → 2016-10-20 | Emergency (ER) | payer SELFPAY ==
[2016-10-19 21:19] VITALS: BP 153/84
[~2016-10-20] MED LIST changes: +OXYC1TAB7 PO
--- NOTE | 2016-10-20 08:54 | ED.ADGEN ---
Past Medical History Past Medical History: Sciatica, Other Additional Past Medical Histor: Cmapos's Palsy, heartburn Past Surgical History: , Hysterectomy Alcohol Use: None Drug Use: None Physician Documentation Physician Documentation I was informed by nursing staff that patient presented to the dental front office assistant of the waiting room inquiring about her abdominal pain. Patient was seen here yesterday with CT scan and labs performed. Evidently, patient was released from the emergency department as her is having surgery today. Patient was initially registered to the emergency department, however, she declines coming back into the emergency department at this time as her is having surgery. I did not have any one-on-one interaction with this individual. ANDRADE WYNN October 20, 2016 08:54
== END | disposition left against medical advice (07) ==
LOC: ER 08:37
DX: R10.9 Unspecified abdominal pain (principal); G51.0 Bell's palsy; Z98.890 Other specified postprocedural states; Z90.710 Acquired absence of both cervix and uterus; Z53.21 Procedure and treatment not carried out due to patient leaving prior to being seen by health care provider

== ENCOUNTER 2017-05-29 10:05 | Emergency (ER) | payer BC ==
[~2017-05-29] VITALS: Ht 170.2 cm; Wt 113.4 kg
[~2017-05-29 10:05] MED LIST changes: +OXYC1TAB7 PO
[2017-05-29 10:22] VITALS: BP 150/80
--- NOTE | 2017-05-29 10:45 | PHYS DOC ---
Past Medical History Past Medical History: GERD, Sciatica, Other Additional Past Medical Histor: Campos's Palsy Past Surgical History: Appendectomy, , Hysterectomy Alcohol Use: None Drug Use: None Adult General Chief Complaint Chief Complaint: KNEE INJURY [facility] HPI Patient is a 41 year old female presents to the ED complaining of right knee pain x 1 day. States yesterday she was walking and heard a pop in her right knee. Complains of right knee pain ever since. Describes the pain as sharp. Rates the pain as 7/10. Denies laceration, fall, head/neck injury, loc, vision changes, n/v or fever. Review of Systems Review of Systems Constitutional: Denies fever or chills [] Eyes: Denies change in visual acuity, redness, or eye pain [] HENT: Denies nasal congestion or sore throat [] Respiratory: Denies cough or shortness of breath [] Cardiovascular: No additional information not addressed in HPI [] GI: Denies abdominal pain, nausea, vomiting, bloody stools or diarrhea [] : Denies dysuria or hematuria [] Musculoskeletal: Complains of knee pain. Denies back pain. [] Integument: Denies rash or skin lesions [] Neurologic: Denies headache, focal weakness or sensory changes [] Endocrine: Denies polyuria or polydipsia [] All other systems were reviewed and found to be within normal limits, except as documented in this note. Allergies Allergies Allergies Coded Allergies Type Severity Reaction Last Updated Verified latex Allergy Intermediate Anaphylaxis 05/25/16 Yes Physical Exam Physical Exam Constitutional: Well developed, well nourished, no acute distress, non-toxic appearance. [] HENT: Normocephalic, atraumatic, oropharynx moist] Skin: Warm, dry, no erythema, no rash. [] Back: No tenderness, no CVA tenderness. [] Extremities: MILD RIGHT ANTERIOR MEDIAL KNEE TENDERNESS. NO SWELLING OR OVERLYING SKIN CHANGES., no cyanosis, no clubbing, ROM intact, no edema. [] Neurologic: Alert and oriented X 3, normal motor function, normal sensory function, no focal deficits noted. [] Psychologic: Affect normal, judgement normal, mood normal. [] Current Patient Data Vital Signs Vital Signs Date Time Temp Pulse Resp B/P (MAP) Pulse Ox O2 Delivery O2 Flow Rate FiO2 05/29/17 10:22 97.9 95 18 97 Room Air 97.9 EKG EKG [] Radiology/Procedures Radiology/Procedures PROCEDURE: KNEE RIGHT 3V Right knee 3 views. History: Anterior knee pain 3 views were taken of the right knee. There is no fracture or joint effusion or osseous abnormality. Impression: 1. Negative right knee. [] Course & Med Decision Making Course & Med Decision Making Pertinent Labs and Imaging studies reviewed. (See chart for details) []Discussed imaging findings with patient. Torres wrap placed. Neurovascular intact post placement. Crutches given. Discussed remaining nonweightbearing until follow-up with orthopedics this next week. Provided contact information/ education. Discussed reasons to return to the ED. Patient understands and agrees with plan. Dragon Disclaimer Dragon Disclaimer This electronic medical record was generated, in whole or in part, using a voice recognition dictation system. Departure Departure Impression: Primary Impression: Knee injury Disposition: HOME, SELF-CARE Condition: STABLE Referrals: BUCKY BLAKE (PCP) DARLING GARZON MD Patient Instructions: Knee - Cartilage (Meniscus) Injury, Knee Pain Scripts Tramadol Hcl (TRAMADOL HCL) 50 Mg Tablet 1 TAB PO PRN Q6HRS, #12 TAB Prov: JOSÉ LUIS DALY 05/29/17 JOSÉ LUIS DALY May 29, 2017 10:45
--- NOTE | 2017-05-29 10:57 | RAD ---
Right knee 3 views. History: Anterior knee pain 3 views were taken of the right knee. There is no fracture or joint effusion or osseous abnormality. Impression: 1. Negative right knee.
[2017-05-29] MEDS ORDERED: TRAM50TA PO (11:03)
== END 2017-05-29 11:53 | disposition home or self-care (01) ==
LOC: ER 10:05
DX: S89.91XA Unspecified injury of right lower leg, initial encounter (principal); K21.9 Gastro-esophageal reflux disease without esophagitis; G51.0 Bell's palsy; Z90.710 Acquired absence of both cervix and uterus; Z90.49 Acquired absence of other specified parts of digestive tract; Z91.040 Latex allergy status; X50.9XXA Other and unspecified overexertion or strenuous movements or postures, initial encounter; Y93.89 Activity, other specified; Y99.8 Other external cause status; Y92.89 Other specified places as the place of occurrence of the external cause
CPT/HCPCS: 73562; 99284

== ENCOUNTER 2017-12-21 01:25 | Emergency (ER) | payer BC ==
[2017-12-21] MEDS: IV NORMAL SALINE 1000ML BAG 1,000 ML IV (02:16)
[2017-12-21] MEDS: methylPREDNISolone SOD SUCC PF 125 MG/2 ML VIAL. IV (02:17)
[2017-12-21] MEDS: diphenhydrAMINE 50 MG/ML VIAL IVP (02:19)
[2017-12-21] MEDS: EPINEPHrine 1 MG/ML VIAL IM (02:23)
[2017-12-21] MEDS: IPRATRPIUM/ALBUTEROL 0.5/2.5MG 3 ML NEBU. NEB (02:36)
== END 2017-12-21 03:45 | disposition home or self-care (01) ==
LOC: ER 01:25
DX: L50.9 Urticaria, unspecified (principal); L25.9 Unspecified contact dermatitis, unspecified cause; K21.9 Gastro-esophageal reflux disease without esophagitis; Z91.040 Latex allergy status
CPT/HCPCS: 93005; 96361; 96372; 96374; 96375; 99284-25; J0171; J1200; J2930; J7030; J7620

== ENCOUNTER 2018-04-27 22:36 | Emergency (ER) | payer BC ==
[~2018-04-27] VITALS: Ht 170.2 cm; Wt 113.4 kg
[~2018-04-27 22:36] MED LIST changes: +PRED20TA PO; +TRAM50TA PO
[2018-04-27 22:51] VITALS: BP 151/94
--- NOTE | 2018-04-27 23:27 | PHYS DOC ---
Past Medical History Past Medical History: GERD, Sciatica, Other Additional Past Medical Histor: Campos's Palsy Past Surgical History: Appendectomy, , Hysterectomy Alcohol Use: None Drug Use: None Adult General Chief Complaint Chief Complaint: COUGH HPI HPI Patient is a 42 year old female who presents today complaining of a productive cough, for 5 days, patient states today she started having some shortness of breath after long periods of coughing as well as a headache. Patient denies any fever. 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 Patient denies any chest pain. Review of Systems Review of Systems Constitutional: Denies fever or chills [] Eyes: Denies change in visual acuity, redness, or eye pain [] HENT: Denies nasal congestion or sore throat [] Respiratory: Reports cough, shortness of breath. Cardiovascular: No additional information not addressed in HPI [] GI: Denies abdominal pain, nausea, vomiting, bloody stools or diarrhea [] : Denies dysuria or hematuria [] Musculoskeletal: Denies back pain or joint pain [] Integument: Denies rash or skin lesions [] Neurologic: Reports headache, denies focal weakness or sensory changes [] All other systems were reviewed and found to be within normal limits, except as documented in this note. Current Medications Current Medications Current Medications Medications (Trade) Dose Ordered Sig/Boogie Start Time Stop Time Status Last Admin Dose Admin Albuterol/ Ipratropium (Duoneb) 3 ml 1X ONCE 04/27/18 23:45 04/27/18 23:46 DC 04/27/18 23:34 3 ML Benzonatate (Tessalon Perle) 100 mg 1X ONCE 04/27/18 23:45 04/27/18 23:46 DC 04/27/18 23:49 100 MG Prednisone (Prednisone) 50 mg 1X ONCE 04/27/18 23:45 04/27/18 23:46 DC 04/27/18 23:49 50 MG Allergies Allergies Allergies Coded Allergies Type Severity Reaction Last Updated Verified latex Allergy Intermediate Anaphylaxis 05/25/16 Yes Physical Exam Physical Exam Constitutional: Well developed, well nourished, no acute distress, non-toxic appearance. [] HENT: Normocephalic, atraumatic, bilateral external ears normal, oropharynx moist, no oral exudates, nose normal. [] Eyes: PERRLA, EOMI, conjunctiva normal, no discharge. [] Neck: Normal range of motion, no tenderness, supple, no stridor. [] Cardiovascular:Heart rate regular rhythm, no murmur [] Lungs & Thorax: Bilateral breath sounds clear to auscultation, patient is actively coughing in the ED. Abdomen: Bowel sounds normal, soft, no tenderness, no masses, no pulsatile masses. [] Skin: Warm, dry, no erythema, no rash. [] Back: No tenderness, no CVA tenderness. [] Extremities: No tenderness, no cyanosis, no clubbing, ROM intact, no edema. [] Neurologic: Alert and oriented X 3, normal motor function, normal sensory function, no focal deficits noted. [] Psychologic: Affect normal, judgement normal, mood normal. [] Current Patient Data Vital Signs Vital Signs Date Time Temp Pulse Resp B/P (MAP) Pulse Ox O2 Delivery O2 Flow Rate FiO2 04/27/18 23:54 111 24 97 04/27/18 23:34 Room Air 04/27/18 22:51 97.6 151/94 (113) 97.6 EKG EKG [] Radiology/Procedures Radiology/Procedures [] Course & Med Decision Making Course & Med Decision Making Pertinent Labs and Imaging studies reviewed. (See chart for details) This is a 42-year-old female patient presenting to the ED today with a cough productive in nature for 5 days. No fever. Chest x-ray interpreted by Dr. Encinas is negative for any acute findings. Patient was given a DuoNeb treatment in the ED prednisone and Tessalon Perles. Her coughing has stopped for now. She was discharged with albuterol inhaler prednisone for 4 more days and Tessalon Perles. Encouraged to follow up with the PCP in the course of next week if symptoms continue. Provided return precautions and discharged in stable condition. Dragon Disclaimer Dragon Disclaimer This electronic medical record was generated, in whole or in part, using a voice recognition dictation system. Departure Departure Impression: Primary Impression: Acute bronchitis, viral Disposition: 01 HOME, SELF-CARE Condition: STABLE Referrals: BUCKY BLAKE (PCP) Follow-up in 1-2 weeks Patient Instructions: Acute Bronchitis Additional Instructions: You were evaluated in the emergency room with symptoms consistent of viral bronchitis. Use the prescribed medications as ordered. Follow-up with your doctor next week. Come back to the ED at any point symptoms worsen. Scripts Prednisone (PREDNISONE) 50 Mg Tablet 1 TAB PO DAILY, #4 TAB Prov: IFTIKHAR BAKER APRN 04/28/18 Benzonatate (TESSALON PERLE) 100 Mg Capsule 1 CAP PO TID, #30 CAP Prov: IFTIKHAR BAKER APRN 04/27/18 Albuterol Sulfate (VENTOLIN HFA INHALER) 18 Gm Hfa.aer.ad 2 PUFF INH Q4HRS for FOR ASTHMA, #1 INHALER 0 Refills Prov: IFTIKHAR BAKER APRN 04/27/18 Benzonatate (TESSALON PERLE) 100 Mg Capsule 1 CAP PO TID, #30 CAP Prov: IFTIKHAR BAKER APRN 04/27/18 IFTIKHAR BAKER APRN Apr 27, 2018 23:27
[2018-04-27] MEDS ORDERED: BENZONATATE 100 MG CAPSULE. PO ONE (23:45)
[2018-04-27] MEDS ORDERED: predniSONE 20 MG TABLET PO ONE (23:45)
[2018-04-27] MEDS ORDERED: IPRATRPIUM/ALBUTEROL 0.5/2.5MG 3 ML NEBU. NEB ONE (23:45)
[2018-04-27] MEDS ORDERED: BENZ100C PO (23:56)
[2018-04-27] MEDS ORDERED: VENTOLIN HFA18 GM INH (23:56)
[2018-04-28] MEDS ORDERED: PRED50TA PO (00:06)
--- NOTE | 2018-04-28 00:06 | RAD ---
CHEST PA LATERAL History: COUGH/SOB Comparison: Two-view chest December 19, 2005. Findings: The cardiomediastinal silhouette is normal. Pulmonary vasculature is normal. The lungs are clear. No pleural effusion or pneumothorax is seen. There is no acute bone abnormality. IMPRESSION: No acute cardiopulmonary process. Electronically signed by: Bonilla Andersen MD (04/28/2018 12:03 AM) [id number]
== END 2018-04-28 00:13 | disposition home or self-care (01) ==
LOC: ER 22:36
DX: J20.8 Acute bronchitis due to other specified organisms (principal); R51 Headache; K21.9 Gastro-esophageal reflux disease without esophagitis; Z98.890 Other specified postprocedural states; Z90.89 Acquired absence of other organs; Z90.710 Acquired absence of both cervix and uterus
CPT/HCPCS: 71046; 94640; 99284; J7512; J7620

== ENCOUNTER 2018-06-03 22:22 | Emergency (ER) | payer BC ==
[~2018-06-03] VITALS: Ht 172.7 cm; Wt 108.9 kg
[~2018-06-03 22:22] MED LIST changes: +BENZ100C PO; +VENTOLIN HFA18 GM INH
[2018-06-03 22:49] LABS: BILIRUBIN,URINE NEGATIVE (NEG); COLOR,URINE YELLOW; NITRITE,URINE NEGATIVE (NEG); PROTEIN,URINE 30 mg/dL (NEG-TRACE); UROBILINOGEN,URINE 0.2 mg/dL (0.2 mg/dL)
[2018-06-03] MEDS ORDERED: IV NORMAL SALINE 1000ML BAG 1,000 ML IV ONE (23:00)
[2018-06-03 23:06] LABS: CLARITY,URINE CLEAR
--- NOTE | 2018-06-03 23:06 | PHYS DOC ---
Past Medical History Past Medical History: GERD, Sciatica, Other Additional Past Medical Histor: Campos's Palsy Past Surgical History: Appendectomy, , Hysterectomy Alcohol Use: None Drug Use: None Adult General Chief Complaint Chief Complaint: ABDOMINAL PAIN HPI HPI Patient is a 42 year old female with current hx of acute bronchitis who presents with lightheaded, SOB, palpitation. Pt reports she feels lightheaded and heart palpitation while she was wrapping her Mina gift. She also has persistent cough and mild SOB. There are some chest tightness and pain in her jaws, back and neck. Pt then experiences some abdominal discomfort and nausea. A month ago, she has been diagnosed with acute bronchitis and been taking Doxycycline since 05/27/2018. Pt denies any pain or swelling in her legs. Positional change does not worsen or exacerbate with her symptoms. Review of Systems Review of Systems Constitutional: Denies fever or chills [] Eyes: Denies change in visual acuity, redness, or eye pain [] HENT: Denies nasal congestion or sore throat [] Respiratory: Endorses cough and shortness of breath [] Cardiovascular: Reports chest discomfort and palpitations GI: Endorse mild abdominal pain, nausea, vomiting[] : Denies dysuria or hematuria [] Musculoskeletal: Endorses back pain. Denies joint pain [] Integument: Denies rash or skin lesions [] Neurologic: Denies headache, focal weakness or sensory changes [] Complete systems were reviewed and found to be within normal limits, except as documented in this note. Current Medications Current Medications Current Medications Medications (Trade) Dose Ordered Sig/Boogie Start Time Stop Time Status Last Admin Dose Admin Dexamethasone Sodium Phosphate (Decadron) 10 mg 1X ONCE 06/03/18 23:15 06/03/18 23:16 DC 06/03/18 23:14 10 MG Famotidine (Pepcid Vial) 20 mg 1X ONCE 06/03/18 23:15 06/03/18 23:16 DC 06/03/18 23:14 20 MG Info (CONTRAST GIVEN -- Rx MONITORING) 1 each PRN DAILY PRN 06/04/18 00:45 06/04/18 02:55 DC Iohexol (Omnipaque 300 Mg/ml) 90 ml 1X ONCE 06/04/18 00:45 06/04/18 00:46 DC 06/04/18 01:09 90 ML Ketorolac Tromethamine (Toradol 15mg Vial) 15 mg 1X ONCE 06/03/18 23:30 06/03/18 23:31 DC 06/03/18 23:31 15 MG Ondansetron HCl (Zofran) 4 mg 1X ONCE 06/03/18 23:15 06/03/18 23:16 DC 06/03/18 23:14 4 MG Sodium Chloride 1,000 ml @ 1,000 mls/hr 1X ONCE 06/03/18 23:00 06/03/18 23:59 DC 06/03/18 23:10 1,000 MLS/HR Allergies Allergies Allergies Coded Allergies Type Severity Reaction Last Updated Verified latex Allergy Intermediate Anaphylaxis 05/25/16 Yes Physical Exam Physical Exam Constitutional: Well developed, well nourished, no acute distress, non-toxic appearance. [] HENT: Normocephalic, atraumatic, bilateral external ears normal, oropharynx moist, no oral exudates, nose normal. [] Eyes: PERRL, EOMI, conjunctiva normal, no discharge. [] Neck: Normal range of motion, no tenderness, supple, no stridor. [] Cardiovascular:Tachycardic. regular rhythm, no murmur [] Lungs & Thorax: Bilateral breath sounds clear to auscultation [] Abdomen: Soft, mild LUQ tenderness [] Skin: Warm, dry, no erythema, no rash. [] Back: No tenderness, no CVA tenderness. [] Extremities: No tenderness, ROM intact, no edema. [] Neurologic: Alert and oriented X 3, normal motor function, normal sensory function, no focal deficits noted. [] Psychologic: Affect normal, judgement normal, mood normal. [] Current Patient Data Vital Signs Vital Signs Date Time Temp Pulse Resp B/P (MAP) Pulse Ox O2 Delivery O2 Flow Rate FiO2 06/04/18 02:30 84 16 113/55 (74) 96 Room Air 06/03/18 22:26 98.1 98.1 Lab Values Laboratory Tests Test 06/03/18 22:26 06/03/18 23:00 Urine Collection Type Void Urine Color Yellow Urine Clarity Clear Urine pH 6.0 Urine Specific [place] 1.025 Urine Protein 30 mg/dL (NEG-TRACE) Urine Glucose (UA) Negative mg/dL (NEG) Urine Ketones (Stick) Negative mg/dL (NEG) Urine Blood Negative (NEG) Urine Nitrite Negative (NEG) Urine Bilirubin Negative (NEG) Urine Urobilinogen Dipstick 0.2 mg/dL (0.2 mg/dL) Urine Leukocyte Esterase Negative (NEG) Urine RBC 0 /HPF (0-2) Urine WBC Occ /HPF (0-4) Urine Squamous Epithelial Cells Mod /LPF Urine Bacteria Moderate /HPF (0-FEW) Urine Mucus Mod /LPF White Blood Count 13.1 x10^3/uL (4.0-11.0) H Red Blood Count 4.99 x10^6/uL (3.50-5.40) Hemoglobin 14.0 g/dL (12.0-15.5) Hematocrit 41.4 % (36.0-47.0) Mean Corpuscular Volume 83 fL (79-100) Mean Corpuscular Hemoglobin 28 pg (25-35) Mean Corpuscular Hemoglobin Concent 34 g/dL (31-37) Red Cell Distribution Width 13.7 % (11.5-14.5) Platelet Count 274 x10^3/uL (140-400) Neutrophils (%) (Auto) 73 % (31-73) Lymphocytes (%) (Auto) 22 % (24-48) L Monocytes (%) (Auto) 4 % (0-9) Eosinophils (%) (Auto) 2 % (0-3) Basophils (%) (Auto) 1 % (0-3) Neutrophils # (Auto) 9.5 x10^3uL (1.8-7.7) H Lymphocytes # (Auto) 2.8 x10^3/uL (1.0-4.8) Monocytes # (Auto) 0.5 x10^3/uL (0.0-1.1) Eosinophils # (Auto) 0.2 x10^3/uL (0.0-0.7) Basophils # (Auto) 0.1 x10^3/uL (0.0-0.2) D-Dimer (Isi) 1.81 ug/mlFEU (0.00-0.50) H Sodium Level 142 mmol/L (136-145) Potassium Level 3.8 mmol/L (3.5-5.1) Chloride Level 101 mmol/L (98-107) Carbon Dioxide Level 30 mmol/L (21-32) Anion Gap 11 (6-14) Blood Urea Nitrogen 17 mg/dL (7-20) Creatinine 0.9 mg/dL (0.6-1.0) Estimated GFR (Cockcroft-Gault) 69.3 BUN/Creatinine Ratio 19 (6-20) Glucose Level 119 mg/dL (70-99) H Calcium Level 9.7 mg/dL (8.5-10.1) Magnesium Level 1.8 mg/dL (1.8-2.4) Total Bilirubin 0.5 mg/dL (0.2-1.0) Aspartate Amino Transferase (AST) 52 U/L (15-37) H Alanine Aminotransferase (ALT) 73 U/L (14-59) H Alkaline Phosphatase 108 U/L (46-116) Creatine Kinase 100 U/L (26-192) Creatine Kinase MB (Mass) 1.3 ng/mL (0.0-3.6) Creatine Kinase MB Relative Index 1.3 % (0-4) Troponin I Quantitative < 0.017 ng/mL (0.000-0.055) Total Protein 8.1 g/dL (6.4-8.2) Albumin 4.2 g/dL (3.4-5.0) Albumin/Globulin Ratio 1.1 (1.0-1.7) Lipase 126 U/L (73-393) Laboratory Tests 06/03/18 23:00 Laboratory Tests 06/03/18 23:00 EKG EKG @2237 Sinus tachycardia at 105bpm, NO ST elevation Radiology/Procedures Radiology/Procedures PROCEDURE: CT ANGIO CHEST ABD PELVIS PQRS Compliance Statement: One or more of the following individualized dose reduction techniques were utilized for this examination: 1. Automated exposure control 2. Adjustment of the mA and/or kV according to patient size 3. Use of iterative reconstruction technique CT ANGIO CHEST ABD PELVIS Clinical Indication: PLEURITIC PAIN, UPPER ABDOMINAL PAIN, ELEVATED D-DIMER Comparison: CT abdomen and pelvis with contrast, October 19, 2016. TECHNIQUE: Helical CT imaging of the chest abdomen and pelvis is performed after 90 cc of Omnipaque 300 IV contrast using angiogram protocol. 3-D MIP and volume rendering reconstructions of the aorta performed. Findings: Contrast opacification of the aorta is adequate for evaluation but not optimal. Aortic arch branches are patent. The thoracic aorta is normal caliber. There is pulsation artifact at the aortic root. There is no aortic dissection. The abdominal aorta is normal in caliber. The abdominal aorta is normal in caliber. Abdominal aorta branches are patent. The iliac and visualized femoral arteries are patent. Calcified subcarinal and left hilar lymph nodes. No large pulmonary embolus. Cardiac size normal, no pericardial effusion. The central airways are patent. There is no pleural abnormality. The lungs are clear. There is moderate fatty infiltration of the liver. There are 2 12 mm relatively hyperdense lesions in the right hepatic lobe inferiorly, image 134. There is a third tiny hyperdensity posterior to the more anterior of these lesions. There is hepatomegaly, craniocaudal dimension is 22.4 cm. Cholecystectomy. The spleen, pancreas, adrenal glands, and kidneys are normal. Stomach unremarkable. No dilated small bowel. There are a few diverticula of the distal colon without inflammation. Probable appendectomy. No abdominal adenopathy or free fluid. Urinary bladder is normal. Surgical clips in the pelvis. Hysterectomy. No pelvic free fluid. Bones unremarkable. IMPRESSION: 1. No aortic dissection. 2. Fatty infiltration of the liver and hepatomegaly. There are small hyperdense lesions in the inferior right hepatic lobe. Recommend further evaluation with outpatient MR abdomen with and without contrast. Electronically signed by: Bonilla Andersen MD (06/04/2018 1:55 AM) [facility] Course & Med Decision Making Course & Med Decision Making Pertinent Labs and Imaging studies reviewed. (See chart for details) PERC score: +1 (due to HR >100). Ordering D-dimer to rule out PE. HEART score: 1 Patient presents with atypical chest pain with reports of palpitations. Unable to r/o PE per PERC. EKG stable. Low cardiac risk factors. Labs obtained and posted to chart. Troponin WNL. D-dimer elevated. LFTs/lipase WNL. CTA chest/ abd/pelvis without acute process. Patient stable for discharge with outpatient follow-up with PCP. Discussed findings and plan with patient and family, who acknowledge understanding and agreement. Dragon Disclaimer Dragon Disclaimer This electronic medical record was generated, in whole or in part, using a voice recognition dictation system. Departure Departure Impression: Primary Impression: Palpitations Additional Impressions: Abdominal pain Bronchitis Disposition: HOME, SELF-CARE Condition: STABLE Referrals: BUCKY BLAKE (PCP) Patient Instructions: Abdominal Pain, Acute Bronchitis, [id number], Nausea and Vomiting, [id number], Palpitations, Plgw-le-[id number] Scripts Famotidine (PEPCID) 20 Mg Tablet 20 MG PO BID, #20 TAB Prov: MARIETTA JESUS DO 06/04/18 Ondansetron (ONDANSETRON ODT) 4 Mg Tab.rapdis 1 TAB PO PRN Q6-8HRS for VOMITING, #16 TAB Prov: MARIETTA JESUS DO 06/04/18 Prednisone (PREDNISONE) 20 Mg Tablet 2 TAB PO DAILY, #8 TAB Prov: MARIETTA JESUS DO 06/04/18 Problem Qualifiers Additional Impressions: Abdominal pain Abdominal location: epigastric Qualified Codes: R10.13 - Epigastric pain MARIETTA JESUS DO Jun 03, 2018 23:06
[2018-06-03 23:09] LABS: BACTERIA,URINE MODERATE /HPF (0-FEW); RBC,URINE 0 /HPF (0-2); SQUAMOUS EPITHELIAL CELL,UR MOD /LPF; WBC,URINE OCC /HPF (0-4)
[2018-06-03 23:15] LABS: BASO # 0.1 x10^3/uL (0.0-0.2); BASO % 1 % (0-3); EOS # 0.2 x10^3/uL (0.0-0.7); EOS % 2 % (0-3); HEMATOCRIT 41.4 % (36.0-47.0); LYMPH # 2.8 x10^3/uL (1.0-4.8); LYMPH % 22 % (24-48); MEAN CORPUSCULAR HEMOGLOBIN 28 pg (25-35); MEAN CORPUSCULAR HGB CONC 34 g/dL (31-37); MEAN CORPUSCULAR VOLUME 83 fL (79-100); MONO # 0.5 x10^3/uL (0.0-1.1); MONO % 4 % (0-9); NEUT # 9.5 x10^3uL (1.8-7.7); NEUT % 73 % (31-73); PLATELET COUNT 274 x10^3/uL (140-400); RED BLOOD COUNT 4.99 x10^6/uL (3.50-5.40); RED CELL DISTRIBUTION WIDTH 13.7 % (11.5-14.5); WHITE BLOOD COUNT 13.1 x10^3/uL (4.0-11.0)
[2018-06-03] MEDS ORDERED: FAMOTIDINE 20 MG/2 ML VIAL IVP ONE (23:15)
[2018-06-03] MEDS ORDERED: DEXAMETHASONE SOD PHOS 20 MG/5 ML VIAL. IV ONE (23:15)
[2018-06-03] MEDS ORDERED: ONDANSETRON PF 4 MG/2 ML VIAL. IV ONE (23:15)
[2018-06-03 23:28] LABS: CALCIUM 9.7 mg/dL (8.5-10.1); CREATININE 0.9 mg/dL (0.6-1.0); GFR 69.3; POTASSIUM 3.8 mmol/L (3.5-5.1)
[2018-06-03] MEDS ORDERED: KETOROLAC 15 MG/ML VIAL. IV ONE (23:30)
[2018-06-03 23:34] LABS: ALBUMIN 4.2 g/dL (3.4-5.0); ALBUMIN/GLOBULIN RATIO 1.1 (1.0-1.7); MAGNESIUM 1.8 mg/dL (1.8-2.4); TOTAL BILIRUBIN 0.5 mg/dL (0.2-1.0); TOTAL PROTEIN 8.1 g/dL (6.4-8.2)
[2018-06-04] MEDS ORDERED: CONTRAST GIVEN. MC PRN (00:45)
[2018-06-04] MEDS ORDERED: IOHEXOL 300 MG/ML 100ML VIAL. IV ONE (00:45)
--- NOTE | 2018-06-04 01:59 | RAD ---
PQRS Compliance Statement: One or more of the following individualized dose reduction techniques were utilized for this examination: 1. Automated exposure control 2. Adjustment of the mA and/or kV according to patient size 3. Use of iterative reconstruction technique CT ANGIO CHEST ABD PELVIS Clinical Indication: PLEURITIC PAIN, UPPER ABDOMINAL PAIN, ELEVATED D-DIMER Comparison: CT abdomen and pelvis with contrast, October 19, 2016. TECHNIQUE: Helical CT imaging of the chest abdomen and pelvis is performed after 90 cc of Omnipaque 300 IV contrast using angiogram protocol. 3-D MIP and volume rendering reconstructions of the aorta performed. Findings: Contrast opacification of the aorta is adequate for evaluation but not optimal. Aortic arch branches are patent. The thoracic aorta is normal caliber. There is pulsation artifact at the aortic root. There is no aortic dissection. The abdominal aorta is normal in caliber. The abdominal aorta is normal in caliber. Abdominal aorta branches are patent. The iliac and visualized femoral arteries are patent. Calcified subcarinal and left hilar lymph nodes. No large pulmonary embolus. Cardiac size normal, no pericardial effusion. The central airways are patent. There is no pleural abnormality. The lungs are clear. There is moderate fatty infiltration of the liver. There are 2 12 mm relatively hyperdense lesions in the right hepatic lobe inferiorly, image 134. There is a third tiny hyperdensity posterior to the more anterior of these lesions. There is hepatomegaly, craniocaudal dimension is 22.4 cm. Cholecystectomy. The spleen, pancreas, adrenal glands, and kidneys are normal. Stomach unremarkable. No dilated small bowel. There are a few diverticula of the distal colon without inflammation. Probable appendectomy. No abdominal adenopathy or free fluid. Urinary bladder is normal. Surgical clips in the pelvis. Hysterectomy. No pelvic free fluid. Bones unremarkable. IMPRESSION: 1. No aortic dissection. 2. Fatty infiltration of the liver and hepatomegaly. There are small hyperdense lesions in the inferior right hepatic lobe. Recommend further evaluation with outpatient MR abdomen with and without contrast. Electronically signed by: Bonilla Andersen MD (06/04/2018 1:55 AM) [facility]
[2018-06-04 02:30] VITALS: BP 113/55
[2018-06-04] MEDS ORDERED: ONDA4TAB12 PO (02:32)
[2018-06-04] MEDS ORDERED: PRED20TA PO (02:32)
[2018-06-04] MEDS ORDERED: FAMO-63 PO (02:32)
--- NOTE | 2018-06-04 07:47 | EKG ---
[facility] [address] [place] [address] Test Date: 2018-06-03 Test Time: 22:37:42 Pat Name: TRI CERRATO Department: Room: Gender: F T Rail Turner: : 1975 Requested By: MARIETTA JESUS Order Number: [id number] Reading MD: Zhang Claudio MD Measurements Intervals [place] Rate: 105 P: 34 W[place]: 136 QRS: 45 QRSD: 74 T: 24 QT: 336 QTc: 448 Interpretive Statements SINUS TACHYCARDIA Electronically Signed On 06-05-2018 10:32:54 [employer]ARD WORK[employer] by Zhang Claudio MD
== END 2018-06-04 02:48 | disposition home or self-care (01) ==
LOC: ER 22:22
DX: J40 Bronchitis, not specified as acute or chronic (principal); R42 Dizziness and giddiness; R00.2 Palpitations; R00.0 Tachycardia, unspecified; R10.12 Left upper quadrant pain; R11.2 Nausea with vomiting, unspecified; K76.0 Fatty (change of) liver, not elsewhere classified; K21.9 Gastro-esophageal reflux disease without esophagitis; Z90.710 Acquired absence of both cervix and uterus; Z90.89 Acquired absence of other organs; Z98.890 Other specified postprocedural states; Z91.040 Latex allergy status
CPT/HCPCS: 36415; 71275; 74174; 80053; 81001; 82553; 83690; 83735; 84484; 85025; 85379; 87086; 93005; 96361; 96374; 96375; 99284; J1100; J1885; J2405; J3490; J7030; Q9967

== ENCOUNTER 2018-08-01 17:18 | Emergency (ER) | payer BC ==
[~2018-08-01] VITALS: Ht 170.2 cm; Wt 108.9 kg
[~2018-08-01 17:18] MED LIST changes: +ONDA4TAB12 PO
[2018-08-01] MEDS ORDERED: METOCLOPRAMIDE HCL 10 MG/2 ML VIAL. IV ONE (17:45)
[2018-08-01] MEDS ORDERED: IV NORMAL SALINE 1000ML BAG 1,000 ML IV ONE (17:45)
[2018-08-01] MEDS ORDERED: diphenhydrAMINE 50 MG/ML VIAL IVP ONE (17:45)
[2018-08-01] MEDS ORDERED: KETOROLAC 30 MG/ML VIAL. IV ONE (17:45)
[2018-08-01 18:03] LABS: BILIRUBIN,URINE NEGATIVE (NEG); CLARITY,URINE CLEAR; COLOR,URINE YELLOW; NITRITE,URINE NEGATIVE (NEG); PH,URINE 5.5; PROTEIN,URINE NEGATIVE (NEG-TRACE); UROBILINOGEN,URINE 0.2 mg/dL (0.2 mg/dL)
[2018-08-01 18:07] LABS: BACTERIA,URINE FEW /HPF (0-FEW); RBC,URINE 0 /HPF (0-2); SQUAMOUS EPITHELIAL CELL,UR FEW /LPF; WBC,URINE 0 /HPF (0-4)
[2018-08-01 18:20] LABS: BASO % 0 % (0-3); EOS # 0.2 x10^3/uL (0.0-0.7); EOS % 3 % (0-3); HEMATOCRIT 38.5 % (36.0-47.0); HEMOGLOBIN 12.6 g/dL (12.0-15.5); LYMPH # 2.8 x10^3/uL (1.0-4.8); LYMPH % 34 % (24-48); MEAN CORPUSCULAR HEMOGLOBIN 28 pg (25-35); MEAN CORPUSCULAR HGB CONC 33 g/dL (31-37); MEAN CORPUSCULAR VOLUME 84 fL (79-100); MONO # 0.3 x10^3/uL (0.0-1.1); MONO % 4 % (0-9); NEUT # 4.8 x10^3uL (1.8-7.7); NEUT % 59 % (31-73); PLATELET COUNT 226 x10^3/uL (140-400); RED BLOOD COUNT 4.57 x10^6/uL (3.50-5.40); RED CELL DISTRIBUTION WIDTH 13.8 % (11.5-14.5); WHITE BLOOD COUNT 8.2 x10^3/uL (4.0-11.0)
[2018-08-01 18:32] LABS: CALCIUM 9.7 mg/dL (8.5-10.1); CREATININE 0.7 mg/dL (0.6-1.0); GFR 92.2
--- NOTE | 2018-08-01 18:35 | RAD ---
CT scan of the head without contrast 08/01/2018 Clinical History: Headache for 5 days. Technique: Unenhanced, contiguous, 5 mm axial sections were obtained through the head. One or more of the following individualized dose reduction techniques were utilized for this study: 1. Automated exposure control. 2. Adjustment of the mA and/or kV according to patient size. 3. Use of iterative reconstruction technique. Findings: The ventricles and sulci are within normal limits in size and configuration. No focal area of abnormal attenuation is seen involving the brain parenchyma. No extra-axial fluid collection is seen. No skull fracture is seen. Impression: Negative study. Electronically signed by: Gabriel Lyons MD (08/01/2018 6:32 PM) [facility]
[2018-08-01 18:38] LABS: ALBUMIN 3.7 g/dL (3.4-5.0); ALBUMIN/GLOBULIN RATIO 0.9 (1.0-1.7); TOTAL BILIRUBIN 0.2 mg/dL (0.2-1.0); TOTAL PROTEIN 7.8 g/dL (6.4-8.2)
[2018-08-01 19:30] VITALS: BP 125/89
[2018-08-01] MEDS ORDERED: BUTA1TAB23 PO (19:39)
--- NOTE | 2018-08-01 19:40 | PHYS DOC ---
Past Medical History Past Medical History: GERD, Sciatica, Other Additional Past Medical Histor: Campos's Palsy Past Surgical History: Appendectomy, Cholecystectomy, , Hysterectomy Alcohol Use: None Drug Use: None Adult General Chief Complaint Chief Complaint: HEADACHE HPI HPI Patient is a 43 year old female who presents with a headache x 5 days. She denies head injury. 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 The patient has no migraine history, but she gets frequent headaches usually to the right. The patients tried [id number] medications with no relief. Review of Systems Review of Systems Constitutional: Denies fever or chills [] Eyes: Denies change in visual acuity, redness, or eye pain [] HENT: Denies nasal congestion or sore throat [] Respiratory: Denies cough or shortness of breath [] Cardiovascular: No additional information not addressed in HPI [] GI: Denies abdominal pain, nausea, vomiting, bloody stools or diarrhea [] : Denies dysuria or hematuria [] Musculoskeletal: Denies back pain or joint pain [] Integument: Denies rash or skin lesions [] Neurologic: See history of present illness Endocrine: Denies polyuria or polydipsia [] All other systems were reviewed and found to be within normal limits, except as documented in this note. Current Medications Current Medications Current Medications Medications (Trade) Dose Ordered Sig/Boogie Start Time Stop Time Status Last Admin Dose Admin Diphenhydramine HCl (Benadryl) 50 mg 1X ONCE 08/01/18 17:45 08/01/18 17:52 DC 08/01/18 18:02 50 MG Ketorolac Tromethamine (Toradol 30mg Vial) 30 mg 1X ONCE 08/01/18 17:45 08/01/18 17:52 DC 08/01/18 18:03 30 MG Metoclopramide HCl (Reglan Vial) 10 mg 1X ONCE 08/01/18 17:45 08/01/18 17:52 DC 08/01/18 18:01 10 MG Sodium Chloride 1,000 ml @ 1,000 mls/hr 1X ONCE 08/01/18 17:45 08/01/18 18:44 DC 08/01/18 18:02 1,000 MLS/HR Allergies Allergies Allergies Coded Allergies Type Severity Reaction Last Updated Verified latex Allergy Intermediate Anaphylaxis 05/25/16 Yes Physical Exam Physical Exam Constitutional: Well developed, well nourished, no acute distress, non-toxic appearance. [] HENT: Normocephalic, atraumatic, bilateral external ears normal, oropharynx moist, no oral exudates, nose normal. [] Eyes: PERRLA, EOMI, conjunctiva normal, no discharge. [] Neck: Normal range of motion, no tenderness, supple, no stridor. [] Cardiovascular:Heart rate regular rhythm, no murmur [] Lungs & Thorax: Bilateral breath sounds clear to auscultation [] Abdomen: Bowel sounds normal, soft, no tenderness, no masses, no pulsatile masses. [] Skin: Warm, dry, no erythema, no rash. [] Back: No tenderness, no CVA tenderness. [] Extremities: No tenderness, no cyanosis, no clubbing, ROM intact, no edema. [] Neurologic: Alert and oriented X 3, normal motor function, normal sensory function, no focal deficits noted, cranial nerves II-XII are grossly intact with mild facial drooping noted that is residual from her Campos's palsy. [] Psychologic: Affect normal, judgement normal, mood normal. [] Current Patient Data Vital Signs Vital Signs Date Time Temp Pulse Resp B/P (MAP) Pulse Ox O2 Delivery O2 Flow Rate FiO2 08/01/18 19:30 90 20 99 08/01/18 17:31 97.7 142/97 (112) Room Air 97.7 Lab Values Laboratory Tests Test 08/01/18 17:22 08/01/18 18:00 Urine Collection Type Unknown Urine Color Yellow Urine Clarity Clear Urine pH 5.5 Urine Specific [place] 1.010 Urine Protein Negative mg/dL (NEG-TRACE) Urine Glucose (UA) Negative mg/dL (NEG) Urine Ketones (Stick) Negative mg/dL (NEG) Urine Blood Negative (NEG) Urine Nitrite Negative (NEG) Urine Bilirubin Negative (NEG) Urine Urobilinogen Dipstick 0.2 mg/dL (0.2 mg/dL) Urine Leukocyte Esterase Negative (NEG) Urine RBC 0 /HPF (0-2) Urine WBC 0 /HPF (0-4) Urine Squamous Epithelial Cells Few /LPF Urine Bacteria Few /HPF (0-FEW) White Blood Count 8.2 x10^3/uL (4.0-11.0) Red Blood Count 4.57 x10^6/uL (3.50-5.40) Hemoglobin 12.6 g/dL (12.0-15.5) Hematocrit 38.5 % (36.0-47.0) Mean Corpuscular Volume 84 fL (79-100) Mean Corpuscular Hemoglobin 28 pg (25-35) Mean Corpuscular Hemoglobin Concent 33 g/dL (31-37) Red Cell Distribution Width 13.8 % (11.5-14.5) Platelet Count 226 x10^3/uL (140-400) Neutrophils (%) (Auto) 59 % (31-73) Lymphocytes (%) (Auto) 34 % (24-48) Monocytes (%) (Auto) 4 % (0-9) Eosinophils (%) (Auto) 3 % (0-3) Basophils (%) (Auto) 0 % (0-3) Neutrophils # (Auto) 4.8 x10^3uL (1.8-7.7) Lymphocytes # (Auto) 2.8 x10^3/uL (1.0-4.8) Monocytes # (Auto) 0.3 x10^3/uL (0.0-1.1) Eosinophils # (Auto) 0.2 x10^3/uL (0.0-0.7) Basophils # (Auto) 0.0 x10^3/uL (0.0-0.2) Sodium Level 142 mmol/L (136-145) Potassium Level 4.0 mmol/L (3.5-5.1) Chloride Level 104 mmol/L (98-107) Carbon Dioxide Level 27 mmol/L (21-32) Anion Gap 11 (6-14) Blood Urea Nitrogen 17 mg/dL (7-20) Creatinine 0.7 mg/dL (0.6-1.0) Estimated GFR (Cockcroft-Gault) 92.2 BUN/Creatinine Ratio 24 (6-20) H Glucose Level 121 mg/dL (70-99) H Calcium Level 9.7 mg/dL (8.5-10.1) Total Bilirubin 0.2 mg/dL (0.2-1.0) Aspartate Amino Transferase (AST) 60 U/L (15-37) H Alanine Aminotransferase (ALT) 62 U/L (14-59) H Alkaline Phosphatase 121 U/L (46-116) H Total Protein 7.8 g/dL (6.4-8.2) Albumin 3.7 g/dL (3.4-5.0) Albumin/Globulin Ratio 0.9 (1.0-1.7) L Laboratory Tests 08/01/18 18:00 Laboratory Tests 08/01/18 18:00 EKG EKG [] Radiology/Procedures Radiology/Procedures []PATIENT: TRI CERRATOCOUNT: [id number]#: [id number] : 1975 LOCATION: ER AGE: 43 SEX: F EXAM STATUS: REG ER ORD. PHYSICIAN: BALJINDER STEVE APRN REASON: headache x 5 days PROCEDURE: CT HEAD WO CONTRAST CT scan of the head without contrast 08/01/2018 Clinical History: Headache for 5 days. Technique: Unenhanced, contiguous, 5 mm axial sections were obtained through the head. One or more of the following individualized dose reduction techniques were utilized for this study: 1. Automated exposure control. 2. Adjustment of the mA and/or kV according to patient size. 3. Use of iterative reconstruction technique. Findings: The ventricles and sulci are within normal limits in size and configuration. No focal area of abnormal attenuation is seen involving the brain parenchyma. No extra-axial fluid collection is seen. No skull fracture is seen. Impression: Negative study. Electronically signed by: Gabriel Lyons MD (08/01/2018 6:32 PM) [facility] DICTATED and SIGNED BY: GABRIEL LYONS MD DATE: 08/01/181829 Course & Med Decision Making Course & Med Decision Making Pertinent Labs and Imaging studies reviewed. (See chart for details) []The patient's symptoms have resolved with medications in the emergency department. Dragon Disclaimer Dragon Disclaimer This electronic medical record was generated, in whole or in part, using a voice recognition dictation system. Departure Departure Impression: Primary Impression: Headache Disposition: HOME, SELF-CARE Condition: STABLE Referrals: BUCKY BLAKE (PCP) Patient Instructions: General Headache Without Cause Additional Instructions: Take the medication as directed. Do not exceed more than 6 tablets in one day. Follow-up with your primary care provider for a recheck and keep it headache diary to take with you to your appointment. If worsening return to the emergency department. Scripts Butalb/Acetaminophen/Caffeine ([id number] 50-325-40) 1 Each Tablet 1 EACH PO q 4 hours for headache, #30 TAB Do not exceed 6 tablets daily. Prov: BALJINDER STEVE APRN 08/01/18 BALJINDER STEVE APRN Aug 01, 2018 19:40
== END 2018-08-01 19:55 | disposition home or self-care (01) ==
LOC: ER 17:18
DX: R51 Headache (principal); R29.810 Facial weakness; K21.9 Gastro-esophageal reflux disease without esophagitis; Z90.89 Acquired absence of other organs; Z90.49 Acquired absence of other specified parts of digestive tract; Z90.710 Acquired absence of both cervix and uterus; Z98.890 Other specified postprocedural states; Z91.040 Latex allergy status
CPT/HCPCS: 36415; 70450; 80053; 81001; 85025; 96374; 96375; 99284; J1200; J1885; J2765; J7030

== ENCOUNTER 2018-08-02 23:05 | Emergency (ER) | payer BC, OTHER ==
[~2018-08-02] VITALS: Ht 170.2 cm; Wt 113.4 kg
[~2018-08-02 23:05] MED LIST changes: +BUTA1TAB23 PO
[2018-08-03 01:34] VITALS: BP 156/101
--- NOTE | 2018-08-03 01:52 | PHYS DOC ---
Past Medical History Past Medical History: GERD, Sciatica, Other Additional Past Medical Histor: Campos's Palsy Past Surgical History: Appendectomy, Cholecystectomy, , Hysterectomy Alcohol Use: None Drug Use: None Adult General Chief Complaint Chief Complaint: HEADACHE HPI HPI Patient is a 43 year old female who presents with left-sided neck and head pain. This started approximately the 72 hours ago. Patient was seen in the ER last night for this and had a negative workup to include laboratory testing and a head CT. There is been some nausea. Patient does have sick family member at home with nausea vomiting and diarrheal illness. Patient was prescribed anti- inflammatories and muscle relaxers which do not seem to significantly improve the pain. Patient has not seen her primary care physician at this time. Patient denies any numbness, tingling, paresthesias, or focal weakness. Reports that the pain is at a baseline level but has paroxysms words 10 out of 10.[] Review of Systems Review of Systems Constitutional: Denies fever or chills [] Eyes: Denies change in visual acuity, redness, or eye pain [] HENT: Denies nasal congestion or sore throat [] Respiratory: Denies cough or shortness of breath [] Cardiovascular: No chest pain or palpitations[] GI: Denies abdominal pain, nausea, vomiting, bloody stools or diarrhea [] : Denies dysuria or hematuria [] Musculoskeletal: Denies back pain or joint pain [] Integument: Denies rash or skin lesions [] Neurologic: Denies focal weakness or sensory changes, see history of present illness [] Endocrine: Denies polyuria or polydipsia [] All other systems were reviewed and found to be within normal limits, except as documented in this note. Current Medications Current Medications Current Medications Medications (Trade) Dose Ordered Sig/Boogie Start Time Stop Time Status Last Admin Dose Admin Diphenhydramine HCl (Benadryl) 50 mg 1X ONCE 08/03/18 02:30 08/03/18 02:31 DC 08/03/18 02:07 50 MG Ketorolac Tromethamine (Toradol 15mg Vial) 15 mg 1X ONCE 08/03/18 02:30 08/03/18 02:31 DC 08/03/18 02:07 15 MG Metoclopramide HCl (Reglan Vial) 10 mg 1X ONCE 2/14/19 02:30 08/03/18 02:31 DC 08/03/18 02:07 10 MG Allergies Allergies Allergies Coded Allergies Type Severity Reaction Last Updated Verified latex Allergy Intermediate Anaphylaxis 05/25/16 Yes Physical Exam Physical Exam Constitutional: Well developed, well nourished, mild discomfort, non-toxic appearance. [] HENT: Normocephalic, atraumatic, bilateral external ears normal, oropharynx moist, no oral exudates, nose normal. [] Eyes: PERRLA, EOMI, conjunctiva normal, no discharge. [] Neck: Normal range of motion, no tenderness, supple, no stridor. No meningismus [] Cardiovascular:Heart rate regular rhythm, no murmur [] Lungs & Thorax: Bilateral breath sounds clear to auscultation [] Abdomen: Bowel sounds normal, soft, no tenderness, no masses, no pulsatile masses. [] Skin: Warm, dry, no erythema, no rash. [] Back: No tenderness, no CVA tenderness. [] Extremities: No tenderness, no cyanosis, no clubbing, ROM intact, no edema. [] Neurologic: Alert and oriented X 3, normal motor function, normal sensory function, no focal deficits noted. [] Psychologic: Affect normal, judgement normal, mood normal. [] Current Patient Data Vital Signs Vital Signs Date Time Temp Pulse Resp B/P (MAP) Pulse Ox O2 Delivery O2 Flow Rate FiO2 08/03/18 01:34 97.7 92 18 156/101 (119) 98 Room Air 97.7 EKG EKG [] Radiology/Procedures Radiology/Procedures [] Course & Med Decision Making Course & Med Decision Making Pertinent Labs and Imaging studies reviewed. (See chart for details) ED course: Patient arrived, was placed in bed, tolerated exam well. Patient was given IV medications which significantly improved her pain. Discussed plan with the patient and family who is driving. All questions were answered. Medical decision making: Given that she was seen within the past 24 hours do not feel the need for CT scan or repeat laboratory testing. There is no evidence meningitis, encephalitis, intractable headache, angle closure glaucoma , nor other significant headache trigger.[] Dragon Disclaimer Dragon Disclaimer This electronic medical record was generated, in whole or in part, using a voice recognition dictation system. Departure Departure Impression: Primary Impression: Headache Disposition: HOME, SELF-CARE Condition: IMPROVED Referrals: BUCKY BLAKE (PCP) Follow-up within 2 days Patient Instructions: General Headache Without Cause Additional Instructions: Follow-up with your regular doctor in 2 days. Drink plenty of fluids. Return to the ER if worsening pain, unable to tolerate liquids, or any other concerns. Scripts Tramadol Hcl (TRAMADOL HCL) 50 Mg Tablet 50 MG PO Q6HRS PRN for PAIN, #20 TAB Prov: VERNELL MORTENSEN DO 08/03/18 Orphenadrine Citrate (ORPHENADRINE CITRATE) 100 Mg Tablet.er 100 MG PO BID, #20 TAB.SR Prov: VERNELL MORTENSEN DO 08/03/18 Meloxicam (MELOXICAM) 7.5 Mg Tablet 7.5 MG PO DAILY, #20 TAB Prov: VERNELL MORTENSEN DO 08/03/18 Problem Qualifiers Primary Impression: Headache Headache type: unspecified Headache chronicity pattern: unspecified pattern Intractability: not intractable Qualified Codes: R51 - Headache VERNELL MORTENSEN DO Aug 03, 2018 01:52
[2018-08-03] MEDS ORDERED: KETOROLAC 15 MG/ML VIAL. IV ONE (02:30)
[2018-08-03] MEDS ORDERED: METOCLOPRAMIDE HCL 10 MG/2 ML VIAL. IV ONE (02:30)
[2018-08-03] MEDS ORDERED: diphenhydrAMINE 50 MG/ML VIAL IVP ONE (02:30)
[2018-08-03] MEDS ORDERED: ORPH100T PO (02:34)
[2018-08-03] MEDS ORDERED: MELO7.5T29 PO (02:34)
[2018-08-03] MEDS ORDERED: TRAM50TA PO (02:35)
== END 2018-08-03 02:52 | disposition home or self-care (01) ==
LOC: ER 23:05
DX: R51 Headache (principal); M54.2 Cervicalgia; K21.9 Gastro-esophageal reflux disease without esophagitis; Z90.89 Acquired absence of other organs; Z90.49 Acquired absence of other specified parts of digestive tract; Z90.710 Acquired absence of both cervix and uterus; Z98.890 Other specified postprocedural states; Z91.040 Latex allergy status
CPT/HCPCS: 96374; 96375; 99283; J1200; J1885; J2765

== ENCOUNTER 2020-07-13 08:28 | Emergency (ER) | payer BC ==
[~2020-07-13] VITALS: Ht 167.6 cm; Wt 113.0 kg
[~2020-07-13 08:28] MED LIST changes: +MELO7.5T29 PO; +ORPH100T PO
--- NOTE | 2020-07-13 09:48 | RAD ---
Right foot 3 views 07/13/2020. Reason for exam: Pain after falling 2 days ago. No fracture or dislocation is seen. Mild arthritic changes are shown at the first MTP joint. There is no apparent foreign body. IMPRESSION: No acute abnormality. Electronically signed by: Fahad English Jr., MD (07/13/2020 9:46 AM) [id number]
--- NOTE | 2020-07-13 09:51 | PHYS DOC ---
Past Medical History Past Medical History: GERD, Sciatica, Other Additional Past Medical Histor: Campos's Palsy Past Surgical History: Appendectomy, Cholecystectomy, , Hysterectomy Smoking Status: Never Smoker Alcohol Use: None Drug Use: None General Adult EDM: Chief Complaint: FOOT INJURY PAIN HPI: HPI: Patient is a 45 year old female who presented to ER for evaluation of right foot pain started when she woke up this morning. It hurt when she walks on it. Patient says she fell on her right side 2 to 3 days ago but she was okay then. Patient said she did not twist her right foot or ankle. Patient denies any cough or fever patient denies any leg swelling or trouble breathing. Review of Systems: Review of Systems: Constitutional: Denies fever or chills. [] Eyes: Denies change in visual acuity. [] HENT: Denies nasal congestion or sore throat. [] Respiratory: Denies cough or shortness of breath. [] Cardiovascular: Denies chest pain or edema. [] GI: Denies abdominal pain, nausea, vomiting, bloody stools or diarrhea. [] : Denies dysuria. [] Musculoskeletal: Positive for right foot pain Integument: Denies rash. [] Neurologic: Denies headache, focal weakness or sensory changes. [] Endocrine: Denies polyuria or polydipsia. [] Lymphatic: Denies swollen glands. [] Psychiatric: Denies depression or anxiety. [] Heart Score: Risk Factors: Risk Factors: DM, Current or recent (<one month) smoker, HTN, HLP, family history of CAD, obesity. Risk Scores: Score 0 - 3: 2.5% MACE over next 6 weeks - Discharge Home Score 4 - 6: 20.3% MACE over next 6 weeks - Admit for Clinical Observation Score 7 - 10: 72.7% MACE over next 6 weeks - Early Invasive Strategies Current Medications: Current Medications Medications (Trade) Dose Ordered Sig/Boogie Start Time Stop Time Status Last Admin Dose Admin Ketorolac Tromethamine (Toradol Im) 60 mg 1X ONCE 07/13/20 10:00 07/13/20 10:01 UNV Prednisone (Prednisone) 60 mg 1X ONCE 07/13/20 10:00 07/13/20 10:01 UNV Allergies: Allergies: Allergies Coded Allergies Type Severity Reaction Last Updated Verified latex Allergy Intermediate Anaphylaxis 05/25/16 Yes Physical Exam: PE: Constitutional: Well developed, well nourished, no acute distress, non-toxic appearance. [] HENT: Normocephalic, atraumatic, nose normal. [] Eyes: PERRLA, EOMI, conjunctiva normal, no discharge. [] Neck: Normal range of motion, no tenderness, supple, no stridor. [] Skin: Warm, dry, no erythema, no rash. [] Back: Right foot is tender to palpation along right midfoot to right big toe, warm to touch. Extremities: No tenderness, no cyanosis, no clubbing, ROM intact, no edema. [] Neurologic: Alert and oriented X 3, normal motor function, normal sensory function, no focal deficits noted. [] Psychologic: Affect normal, judgement normal, mood normal. [] EKG: EKG: [] Radiology/Procedures: Radiology/Procedures: [][facility] [address] [place], [place] [id number] IMAGING REPORT Signed PATIENT: TRI CERRATO ACCOUNT: [id number] : 1975 LOCATION: ER AGE: 45 SEX: F EXAM STATUS: REG ER ORD. PHYSICIAN: VISH FISHER DO REASON: right foot pain, fell two days ago PROCEDURE: FOOT RIGHT 3V Right foot 3 views 07/13/2020. Reason for exam: Pain after falling 2 days ago. No fracture or dislocation is seen. Mild arthritic changes are shown at the first MTP joint. There is no apparent foreign body. IMPRESSION: No acute abnormality. Electronically signed by: Aundrea English Jr., MD (07/13/2020 9:46 AM) [id number] DICTATED and SIGNED BY: AUNDREA ENGLISH Jr, MD DATE: 07/13/20 [id number] 0 Course & Med Decision Making: Course & Med Decision Making Pertinent Labs and Imaging studies reviewed. (See chart for details) Patient is a 44-year-old female who presented to ER for evaluation of right foot pain. It is suspected that patient has some form of inflammatory arthritis or gout. We will send her home was anti-inflammatory and steroid. Patient will need to follow-up with her family physician for reevaluation. Patient was given a postop shoe to walk. Devynon Disclaimer: Betsy Disclaimer: This electronic medical record was generated, in whole or in part, using a voice recognition dictation system. Departure Departure Disposition: 01 DC HOME SELF CARE/HOMELESS Condition: IMPROVED Referrals: BUCKY BLAKE (PCP) Follow-up with your doctor next week for reevaluation Patient Instructions: Arthritis, Nonspecific Additional Instructions: Thank you for visiting our Emergency Department. We appreciate you trusting us with your care. If any additional problems come up don't hesitate to return to visit us. Please follow up with your primary care provider so they can plan additional care if needed and know about the problem that you had. If symptoms worsen come back to the Emergency Department. Any concerning symptoms that start such as chest pain, shortness of air, weakness or numbness on one side of the body, running high fevers or any other concerning symptoms return to the ER. Scripts Prednisone (PREDNISONE) 20 Mg Tablet 1 TAB PO DAILY for 7 Days, #7 TAB Prov: VISH FISHER DO 07/13/20 Naproxen Sodium (ANAPROX DS) 550 Mg Tablet 1 TAB PO BID PRN for PAIN for 15 Days, #30 TAB 0 Refills Prov: VISH FISHER DO 07/13/20 VISH FISHER DO Jul 13, 2020 09:51
[2020-07-13] MEDS ORDERED: predniSONE 20 MG TABLET PO ONE (10:00)
[2020-07-13] MEDS ORDERED: KETOROLAC 60 MG/2 ML VIAL. IM ONE (10:00)
[2020-07-13 10:12] VITALS: BP 156/101
[2020-07-13] MEDS ORDERED: PRED20TA PO (10:45)
[2020-07-13] MEDS ORDERED: NAPR-682 PO (10:45)
== END 2020-07-13 15:37 | disposition home or self-care (01) ==
LOC: ER 08:28
DX: M79.671 Pain in right foot (principal); K21.9 Gastro-esophageal reflux disease without esophagitis; Z90.89 Acquired absence of other organs; Z90.49 Acquired absence of other specified parts of digestive tract; Z90.710 Acquired absence of both cervix and uterus; Z98.890 Other specified postprocedural states; Z91.040 Latex allergy status
CPT/HCPCS: 73630; 96372; 99283; J1885; J7512